=== PATIENT | female | born 1960 | race African-American/Black ===

== ENCOUNTER 2022-06-08 19:15 | Emergency (ER) | payer BC, SELFPAY ==
--- NOTE | ~2022-06-08 | CT_ITS ---
EXAMINATION: CT abdomen pelvis w con DATE: 06/08/2022 23:24 INDICATION: Gastrointestinal hemorrhage. TECHNIQUE: Computed tomography (CT) of the abdomen and pelvis was performed with 100 mL Omnipaque 350 intravenous contrast. Automated exposure control and iterative reconstruction technique were employe d. The dose-length product was 1362.41 mGy-cm. COMPARISON: None. FINDINGS: The visualized portions of the lung bases demonstrate mild atelectasis. No pleural effusion . The heart size is normal. No pericardial effusion. The liver, gallbladder, spleen, pancreas, and ad renal glands are normal. There is cortical thinning of the kidneys. There is diverticulosis of the co carola without evidence of diverticulitis. The appendix is normal. There are no pathologically enlarged lymph nodes. There are diverticula of the proximal duodenum. There is no free intraperitoneal fluid. There is scarring in anterior abdominal wall. There is mild lumbar spondylosis. IMPRESSION: 1. No specific etiology for gastrointestinal hemorrhage. Reviewed, dictated and finalized at location A.
[2022-06-08 19:55] VITALS: BP 165/90; PULSE 117; RESP 20; TEMP 36.5; O2SAT 99
[2022-06-08 20:13] LABS: Basophils Percent Auto 0.3 % (0.2-1.2); Eosinophils Absolute Auto 0.2 K/mm3 (0-0.3); Hematocrit 44.8 % (37.0-47.0); Hemoglobin 14.6 g/dL (12.0-15.0); Immature Granulocyte Absolute 0.06 K/mm3 (0.00-0.031); Immature Granulocyte Percent A 0.4 % (0-0.5); Lymphocytes Absolute Auto 3.25 K/mm3 (0.9-3.2); Lymphocytes Percent Auto 22.3 % (18.3-44.2); Mean Corpuscular HGB Conc 32.6 g/dl (32-36); Mean Corpuscular Hemoglobin 29.6 pg (26-34); Mean Corpuscular Volume 90.9 fl (80-100); Mean Platelet Volume 8.8 fl (7.4-10.4); Monocytes Absolute Auto 1.1 K/mm3 (0.1-0.6); Monocytes Percent Auto 7.5 % (2.6-8.5); Neutrophils Percent Auto 68.5 % (45.5-73.1); Platelet Count Result 326 k/mm3 (150-375); Red Blood Count 4.93 M/mm3 (4.2-5.4); Red Cell Distribution Width 14.9 % (11.5-14.5); White Blood Count 14.6 K/mm3 (4.5-10.0)
[2022-06-08 20:24] LABS: Alanine Aminotransferase 16 U/L (6-35); Albumin Level 4.2 g/dL (3.5-5.1); Alkaline Phosphatase 186 U/L (38-126); Anion Gap 12 mmol/L (8-16); Aspartate Amino Transferase 33 U/L (14-36); Bilirubin,Total 0.4 mg/dL (0.2-1.3); Blood Urea Nitrogen 26 mg/dL (7-17); Calcium 9.4 mg/dL (8.4-10.2); Carbon Dioxide 19 mmol/L (22-30); Chloride 107 mmol/L (98-107); Estimated CRCL calculation 63 ml/min; Estimated Glomerular Filt Rate > 60; Glucose 186 mg/dL (65-110); Potassium 3.8 mmol/L (3.4-5.0); Sodium 138 mmol/L (137-145)
[2022-06-08 20:25] LABS: Partial Thromboplastin Time 28.3 SECONDS (22.3-36.8); Prothrombin Time 13.1 Seconds (11.1-14.7)
--- NOTE | 2022-06-08 22:07 | ED.GENADULT ---
HPI - General Adult General Chief complaint: Unspecified Stated complaint: blood in stool Time Seen by Provider: 06/08/22 21:52 Related Data Allergies Allergy/AdvReac Type Severity Reaction Status Date / Time No Known Allergies Allergy Verified 06/08/22 19:57 [facility] Family History Family History (Updated 05/10/18 @ 11:23 by DOCTOR UNKNOWN) Other Diabetes mellitus Hypertension Social History Social History Smoking status: Never smoker Alcohol intake: never Course Vital Signs Vital signs: Vital Signs Temperature 97.7 F 06/08/22 19:55 Pulse Rate 117 H 06/08/22 19:55 Respiratory Rate 20 06/08/22 19:55 Blood Pressure 165/90 H 06/08/22 19:55 Pulse Oximetry 99 06/08/22 19:55 Oxygen Delivery Room Air 06/08/22 19:55 Temperature 97.7 F 06/08/22 19:55 Pulse Rate 117 H 06/08/22 19:55 Respiratory Rate 20 06/08/22 19:55 Blood Pressure 165/90 H 06/08/22 19:55 Pulse Oximetry 99 06/08/22 19:55 Oxygen Delivery Room Air 06/08/22 19:55 Medical Decision Making Vital Signs Vital Signs: Vital Signs Temperature 97.7 F 06/08/22 19:55 Pulse Rate 117 H 06/08/22 19:55 Respiratory Rate 20 06/08/22 19:55 Blood Pressure 165/90 H 06/08/22 19:55 Pulse Oximetry 99 06/08/22 19:55 Oxygen Delivery Room Air 06/08/22 19:55 Temperature 97.7 F 06/08/22 19:55 Pulse Rate 117 H 06/08/22 19:55 Respiratory Rate 20 06/08/22 19:55 Blood Pressure 165/90 H 06/08/22 19:55 Pulse Oximetry 99 06/08/22 19:55 Oxygen Delivery Room Air 06/08/22 19:55 Lab Data Result diagrams: 06/08/22 20:06 06/08/22 20:06 Labs: Lab Results 06/08/22 06/08/22 06/08/22 Range/Units 20:06 20:06 20:06 WBC 14.6 H (4.5-10.0) K/mm3 RBC 4.93 (4.2-5.4) M/mm3 Hgb 14.6 (12.0-15.0) g/dL Hct 44.8 (37.0-47.0) % MCV 90.9 (80-100) fl MCH 29.6 (26-34) pg MCHC 32.6 (32-36) g/dl RDW 14.9 H (11.5-14.5) % Plt Count 326 (150-375) k/mm3 MPV 8.8 (7.4-10.4) fl Immature Gran % (Auto) 0.4 (0-0.5) % Neut % (Auto) 68.5 (45.5-73.1) % Lymph % (Auto) 22.3 (18.3-44.2) % Campbell % (Auto) 7.5 (2.6-8.5) % Eos % (Auto) 1.0 (0-4.4) % Baso % (Auto) 0.3 (0.2-1.2) % Lymph # (Auto) 3.25 H (0.9-3.2) K/mm3 Campbell # (Auto) 1.1 H (0.1-0.6) K/mm3 Eos # (Auto) 0.2 (0-0.3) K/mm3 Baso # (Auto) 0.0 (0.0-0.1) K/mm3 Abs Immat Gran (auto) 0.06 H (0.00-0.031) K/mm3 Absolute Neuts (auto) 10.0 H (1.3-6.7) K/mm3 Absolute Nucleated RBC 0.0 (0.0-0.012) K/mm3 Nucleated RBC % 0.0 (0.0-0.2) % PT 13.1 (11.1-14.7) Seconds INR 1.0 APTT 28.3 (22.3-36.8) SECONDS Sodium 138 (137-145) mmol/L Potassium 3.8 (3.4-5.0) mmol/L Chloride 107 (98-107) mmol/L Carbon Dioxide 19 L (22-30) mmol/L Anion Gap 12 (8-16) mmol/L BUN 26 H (7-17) mg/dL Creatinine 0.90 (0.7-1.0) mg/dL Estim Creat Clear Calc 63 ml/min Estimated GFR > 60 (59 - ) Glucose 186 H (65-110) mg/dL Calcium 9.4 (8.4-10.2) mg/dL Total Bilirubin 0.4 (0.2-1.3) mg/dL AST 33 (14-36) U/L ALT 16 (6-35) U/L Alkaline Phosphatase 186 H (38-126) U/L Total Protein 8.0 (6.3-8.2) g/dL Albumin 4.2 (3.5-5.1) g/dL Blood Type Antibody Screen 06/08/22 Range/Units 20:06 WBC (4.5-10.0) K/mm3 RBC (4.2-5.4) M/mm3 Hgb (12.0-15.0) g/dL Hct (37.0-47.0) % MCV (80-100) fl MCH (26-34) pg MCHC (32-36) g/dl RDW (11.5-14.5) % Plt Count (150-375) k/mm3 MPV (7.4-10.4) fl Immature Gran % (Auto) (0-0.5) % Neut % (Auto) (45.5-73.1) % Lymph % (Auto) (18.3-44.2) % Campbell % (Auto) (2.6-8.5) % Eos % (Auto) (0-4.4) % Baso % (Auto) (0.2-1.2) % Lymph # (Auto) (0.9-3.2) K/mm3 Campbell # (Auto) (0.1-0.6) K/mm3 Eos # (Auto) (0-0.3) K/mm3 Baso # (Auto) (0.0-0.1) K/mm3 Abs Immat Gran (auto) (0.00-0.031)
--- NOTE | 2022-06-08 22:07 | ED.GIBLEED ---
HPI - GI Bleed General Chief complaint: Unspecified Stated complaint: blood in stool Time Seen by Provider: 06/08/22 21:52 History of Present Illness HPI Narrative: This is a 61-year-old female with past medical history of hypertension, hyperlipidemia, diabetes, presents the emergency department complaining of GI bleeding. She states she has had approximately 7 stools with bright red blood, blood clots mixed in stool. She states the bleeding appears to be slowing since it began. She denies pain, fevers or bleeding from any other source. She states she has not had a colonoscopy. She states over the last 4 weeks, she has been constipated. Related Data Allergies Allergy/AdvReac Type Severity Reaction Status Date / Time No Known Allergies Allergy Verified 06/08/22 19:57 Review of Systems Review of Systems: CONSTITUTIONAL: Denies fever, chills, or sweats. EYES: Denies visual changes, redness, or discharge. ENT: Denies rhinorrhea, congestion, sore throat, or otalgia. CARDIOVASCULAR: Denies chest pain, palpitations, or edema. RESPIRATORY: Denies cough or dyspnea. GASTROINTESTINAL: Bright red blood per rectum denies abdominal pain, nausea, vomiting, or diarrhea. GENITOURINARY: Denies dysuria or hematuria. SKIN: Denies rash or itching. MUSCULOSKELETAL: Denies back pain, joint pain, or myalgia. NEUROLOGIC: Denies headache, numbness, dizziness, or weakness. PSYCHIATRIC: Denies anxiety or depression. [facility] Family History Family History (Updated 05/10/18 @ 11:23 by DOCTOR UNKNOWN) Other Diabetes mellitus Hypertension Social History Social History Smoking status: Never smoker Alcohol intake: never Exam Narrative: GENERAL: Well-appearing, well-nourished, and in no acute distress. HEAD: Normocephalic, atraumatic. EYES: PERRLA and EOMI. ENT: Nares clear, no rhinorrhea or epistaxis. Mucous membranes moist. Oropharynx without tonsillar hypertrophy exudate or other lesions. NECK: Supple. No adenopathy or masses. No carotid bruits or JVD CHEST: Clear to auscultation. No respiratory distress. No wheezes rales or rhonchi HEART: Tachycardic with regular rhythm. No murmur heard. Normal peripheral pulses. ABDOMEN: Soft, nontender, nondistended, normal active bowel sounds. EXTREMITIES: Normal range of motion. No edema. SKIN: Warm, dry, no rash. NEURO: No focal deficits. Alert and oriented x3. PSYCH: Normal mood and affect. Course Course Emergency Course: 23:45 - Rectal exam with female nurse inbound telemarketer (STEVEN Wilson) showed bright red blood without hemorrhoid or fissure. Hgb 14. WBC 14. Chemistries remarkable for BUN of 26, consistent with GI bleed. Creatinine 0.9 with normal GFR. The patient states she would prefer to follow up with her primary care physician. 00:32 - CT demonstrates diverticulosis with question of subtle diverticulitis. Discussed findings with the patient, she still prefers to be discharged with primary care follow-up. Discussed return emergency precautions including signs/symptoms of acute abdomen and sepsis. The patient voiced understanding is comfortable to plan. All questions answered to her satisfaction. Vital Signs Vital signs: Vital Signs Temperature 97.7 F 06/08/22 19:55 Pulse Rate 117 H 06/08/22 19:55 Respiratory Rate 20 06/08/22 19:55 Blood Pressure 165/90 H 06/08/22 19:55 Pulse Oximetry 99 06/08/22 19:55 Oxygen Delivery Room Air 06/08/22 19:55 Temperature 97.7 F 06/08/22 19:55 Pulse Rate 109 H 06/09/22 01:00 Respiratory Rate 16 06/09/22 01:00 Blood Pressure 151/83 H 06/09/22 01:00 Pulse Oximetry 99 06/09/22 01:00 Oxygen Delivery Room Air 06/08/22 19:55 MDM - GI Bleed MDM Narrative Medical decision making narrative: Plan: Labs, PPI, imaging, reassess Differential Diagnosis Differential diagnosis: Likely hemorrhoids and other (Diverticulosis, diverticulitis, coagulopathy, metabolic abnormality, other) Lab Data Result diagrams:
[2022-06-08] MEDS: PANTOPRAZOLE SODIUM IV 40 MG VIAL 80 MG IV PUSH (22:26)
[2022-06-08] MEDS: SODIUM CHLORIDE 0.9% IV 1,000 ML 999 ML IV CONT (23:39)
[2022-06-09 01:00] VITALS: BP 151/83; PULSE 109; RESP 16; O2SAT 99
== END 2022-06-09 01:10 | disposition home or self-care (01) ==
PROVIDERS: Emergency Provider Preventive Medicine Aerospace Medicine
DX: K57.31 Diverticulosis of large intestine without perforation or abscess with bleeding (principal); R00.0 Tachycardia, unspecified; I10 Essential (primary) hypertension; E78.5 Hyperlipidemia, unspecified
CPT/HCPCS: 36415; 74177; 80053; 85025; 85610; 85730; 86850; 86900; 86901; 96361; 96374; 99284; C9113; J7030; Q9967

== ENCOUNTER 2022-07-13 00:14 | Day surgery (SDC) | payer BC, SELFPAY ==
[2022-06-25 08:50] VITALS: BMI 41.2
[2022-07-13 08:50] VITALS: BP 159/73; PULSE 88; RESP 18; TEMP 36.1; O2SAT 100; BMI 39.9
[2022-07-13] MEDS: LACTATED RINGERS 1,000 ML 150 ML IV CONT (09:30)
--- NOTE | 2022-07-13 09:31 | SUR.PREOP ---
PT'S BLOOD SUGAR 62. ASYMPTOMATIC. PT STATES SHE FEELS GOOD. DR. RILEY AWARE. NO FURTHER ORDERS.
[2022-07-13 09:32] LABS: Glucose Point of Care 62 mg/dl (65-105)
--- NOTE | 2022-07-13 09:34 | PM.HPGS ---
History of Present Illness History of Present Illness Consent: Risks, benefits, and alternatives have been discussed and questions answered. Patient agrees to proceed with procedure. Chief complaint: diverticulosis Narrative: Megha Chairez is a 61 year old female Presents for colonoscopy. Patient reports 1 month ago she presents the ER with bloody stools. She passed about 7 bowel movements with blood. Some of these were clots. In the ER her hemoglobin was stable. A CT scan revealed diverticulosis. No evidence of diverticulitis. Patient apparently was treated with probiotics and fiber. She was referred for colonoscopy. Patient has had no previous bleeding has had no bleeding subsequently. Family history is significant for colon cancer within the family. Review of Systems Review of Systems: Review of systems noncontributory. [facility] Family History Family History (Updated 05/10/18 @ 11:23 by DOCTOR UNKNOWN) Other Diabetes mellitus Hypertension Social History Social History Smoking status: Never smoker Alcohol intake: never Substance use: never Substance use type: does not use Living arrangements: with family Spiritual care concerns: No Meds Home Medications and Allergies Home Medications Medication Instructions Recorded Confirmed Type sod picosulf 10 mg-magnes 3.5 160 ml PO DAILY 2 doses #320 mL 06/14/22 07/13/22 Rx gram-citric 12 gram/160 mL oral solution (Clenpiq) amlodipine 10 mg tablet (Norvasc) 10 mg PO DAILY 06/25/22 07/13/22 History ergocalciferol (vitamin D2) 1,250 1,250 mcg PO WEEKLY 06/25/22 07/13/22 History mcg (50,000 unit) capsule glimepiride 2 mg tablet 2 mg PO PRN PRN elevated blood 06/25/22 07/13/22 History sugar insulin degludec 200 unit/mL (3 50 unit subcut DAILY 06/25/22 07/13/22 History mL) subcutaneous pen (Tresiba FlexTouch U-200 insulin) metformin 500 mg tablet,extended 500 mg PO PRN PRN elevated blood 06/25/22 07/13/22 History release 24 hr sugar rosuvastatin 5 mg tablet 5 mg PO DAILY 06/25/22 07/13/22 History semaglutide 1 mg/dose (4 mg/3 mL) 1 mg subcut WEEKLY 06/25/22 07/13/22 History subcutaneous pen injector (Ozempic) Allergies Allergy/AdvReac Type Severity Reaction Status Date / Time No Known Allergies Allergy Verified 07/13/22 08:59 Vital Signs Vital Signs - 24 hr 07/13/22 08:50 Temperature 97.0 F L Pulse Rate 88 Respiratory Rate 18 Blood Pressure 159/73 H Pulse Oximetry 100 Oxygen Delivery Room Air Exam Narrative: Physical exam reveals patient be alert. Vital signs stable. HEENT exam is unremarkable. Patient is anicteric. Lungs are clear to auscultation and percussion. Heart is without murmur or extra sounds. Abdomen bowel sounds are present soft nontender with no organomegaly. She is somewhat obese. Digital external rectal exam is normal. Assessment and Plan Assessment and plan (1) Encounter for screening colonoscopy: Code(s): Z12.11 - Encounter for screening for malignant neoplasm of colon Status: Acute Assessment and Plan: Patient presents for neoplasia screening. She has not had previous colonoscopy. Further recommendations will given. (2) Diverticulosis large intestine w/o perforation or abscess w/bleeding: Code(s): K57.31 - Diverticulosis of large intestine without perforation or abscess with bleeding Status: Acute Assessment and Plan: Patient with recent lower GI bleeding episode in the ER CT scan suggested diverticulosis is etiology. High-fiber diet advised. Colonoscopy to evaluate bleeding will be performed. (3) Blood in stool: Code(s): K92.1 - Melena Status: Acute (4) Obese: Code(s): E66.9 - Obesity, unspecified Status: Acute
--- NOTE | 2022-07-13 09:39 | P.PNAN_ITS ---
Anes - Initial Pre Proc Eval Procedure: Operation Date: 07/13/22 10:15 Proposed Procedures p Colonoscopy - Alvaro Stewart MD Date/Time: 07/13/22 09:39 Surgeon: Alvaro Stewart MD Pre Op Diagnosis: diverticulosis Patient Data Age: 61 Gender: F Height: 1.55 m Weight: 96 kg Last Vital Signs Temp 97.0 F L 07/13/22 08:50 Pulse 88 07/13/22 08:50 Resp 18 07/13/22 08:50 BP 159/73 H 07/13/22 08:50 Pulse Ox 100 07/13/22 08:50 O2 Del Method Room Air 07/13/22 08:50 Allergies Allergy/AdvReac Type Severity Reaction Status Date / Time No Known Allergies Allergy Verified 07/13/22 08:59 Home Medications Medication Instructions Recorded Confirmed Type sod picosulf 10 mg-magnes 3.5 160 ml PO DAILY 2 doses #320 mL 06/14/22 07/13/22 Rx gram-citric 12 gram/160 mL oral solution (Clenpiq) amlodipine 10 mg tablet (Norvasc) 10 mg PO DAILY 06/25/22 07/13/22 History ergocalciferol (vitamin D2) 1,250 1,250 mcg PO WEEKLY 06/25/22 07/13/22 History mcg (50,000 unit) capsule glimepiride 2 mg tablet 2 mg PO PRN PRN elevated blood 06/25/22 07/13/22 History sugar insulin degludec 200 unit/mL (3 50 unit subcut DAILY 06/25/22 07/13/22 History mL) subcutaneous pen (Tresiba FlexTouch U-200 insulin) metformin 500 mg tablet,extended 500 mg PO PRN PRN elevated blood 06/25/22 07/13/22 History release 24 hr sugar rosuvastatin 5 mg tablet 5 mg PO DAILY 06/25/22 07/13/22 History semaglutide 1 mg/dose (4 mg/3 mL) 1 mg subcut WEEKLY 06/25/22 07/13/22 History subcutaneous pen injector (Ozempic) Laboratory Tests 07/13/22 09:06 POC Capillary Glucose 62 mg/dl L mg/dl (65-105) Patient hx anesthesia problems: none Family hx anesthesia problems: none Results Review: All pre-operative results and documents have been reviewed as part of the pre- operative evaluation. [facility] Family History Family History (Updated 05/10/18 @ 11:23 by DOCTOR UNKNOWN) Other Diabetes mellitus Hypertension Social History Social History Smoking status: Never smoker Alcohol intake: never Substance use: never Substance use type: does not use Living arrangements: with family Spiritual care concerns: No Anes - Eval Final PreProcedure Day of Procedure 07/13/22 09:39 Patient weight: morbidly obese Heart: regular rate and rhythm Lungs: clear to auscultation Airway: Mallampati scale class III Neurological: alert and oriented Last oral intake: >/= 8 hours ASA classification: III Emergent: no Anesthetic plan: proceed Anesthesia type and monitoring: general GIVS and standard monitoring Results Review: All pre-operative results and documents have been reviewed as part of the pre- operative evaluation. Informed Consent: The patient's anesthetic plan and its attendant risks and benefits were discussed with the patient/family/POA. Questions were solicited and answers provided to the satisfaction of the patient/family/POA.
[2022-07-13] MEDS: DEXTROSE 50% 25 GM/50 ML SYRINGE IV PUSH (09:49)
--- NOTE | 2022-07-13 10:01 | SUR.PREOP ---
0945- AFTER DR. RILEY SPOKE WITH THE PATIENT, ORDERS RECEIVED FOR 12.5G 50% DEXTROSE IVP. 0950- 12.5G 50% DEXTROSE GIVEN. 1000- BS RECHECKED. 92
[2022-07-13 10:02] LABS: Glucose Point of Care 92 mg/dl (65-105)
[2022-07-13 10:48] VITALS: BP 135/69; PULSE 83; RESP 24; O2SAT 100
[2022-07-13 10:58] VITALS: BP 139/71; PULSE 87; RESP 22; O2SAT 100
[2022-07-13 10:58] LABS: Glucose Point of Care 96 mg/dl (65-105)
[2022-07-13 11:08] VITALS: BP 155/62; PULSE 81; RESP 19; O2SAT 100
== END 2022-07-13 12:10 | disposition home or self-care (01) ==
PROVIDERS: Visit Provider Internal Medicine Gastroenterology
PROC: 0DJD8ZZ Inspection of Lower Intestinal Tract, Via Natural or Artificial Opening Endoscopic (ICD-10-PCS; CPT 45378; principal; 2022-07-13 10:15)
DX: K92.1 Melena (principal); K64.8 Other hemorrhoids; K57.30 Diverticulosis of large intestine without perforation or abscess without bleeding; Z79.4 Long term (current) use of insulin; Z79.84 Long term (current) use of oral hypoglycemic drugs; E66.01 Morbid (severe) obesity due to excess calories; Z68.41 Body mass index [BMI] 40.0-44.9, adult; E11.9 Type 2 diabetes mellitus without complications; I10 Essential (primary) hypertension
CPT/HCPCS: 45378; 82948; J2001; J2704; J7120

== ENCOUNTER 2022-12-02 14:40 | Outpatient (CLI) | payer BC, SELFPAY ==
--- NOTE | ~2022-12-02 | US_ITS ---
US art doppler w press LE BI INDICATION: Discoloration of the lower leg. TECHNIQUE: Segmental pressures and plethysmographic and Doppler waveforms of the brachial and lower e xtremity arteries were obtained. COMPARISON: None. FINDINGS: Right and left brachial artery pressures of 137 mm Hg and 169 mm Hg, respectively, are discordant (no rmal difference <= 30 mmHg). The right ankle-brachial index (LATISHA) is 0.96 (normal >= 0.9-1.0). The right great toe-brachial index (TBI) is 0.38 (normal >= 0.60). The left LATISHA is 0.89. The left TBI is 0.47. IMPRESSION: 1. Discordant brachial pressures, suspicious for stenosis of the right subclavian or brachial artery. 2: Diminished right toe brachial index consistent with peripheral arterial disease. Normal right ankl e-brachial index. 3: Diminished left ankle and toe brachial indices consistent with mild peripheral arterial disease. Reviewed, dictated and finalized at location L. [employer] IMPRESSION: 1. Discordant brachial pressures, suspicious for stenosis of the right subclavi an or brachial artery. 2: Diminished right toe brachial index consistent with peripheral arterial dise ase. Normal right ankle-brachial index. 3: Diminished left ankle and toe brachial indices consistent with mild peripher al arterial disease.
== END 2022-12-02 14:41 | disposition home or self-care (01) ==
PROVIDERS: PCP Nurse Practitioner Family; Visit Provider Nurse Practitioner Family
DX: L81.9 Disorder of pigmentation, unspecified (principal); I10 Essential (primary) hypertension; E11.9 Type 2 diabetes mellitus without complications; Z79.4 Long term (current) use of insulin; R93.6 Abnormal findings on diagnostic imaging of limbs
CPT/HCPCS: 93923

== ENCOUNTER 2023-05-31 17:17 | Emergency (ER) | payer BC, SELFPAY ==
--- NOTE | ~2023-05-31 | XR_ITS ---
EXAMINATION: XR chest 2V Exam Date/Time: 05/31/2023 17:35 CDT HISTORY: cough/congestion X 5 DAYS Comparison: None. RESULT: Lines, tubes, and devices: None. Lungs and pleura: Minimal bibasilar scar/atelectasis. Cardiomediastinal silhouette: Stable. Other: No acute osseous or upper abdominal finding. IMPRESSION: No acute cardiopulmonary process. Reviewed, dictated and finalized at location K.
[2023-05-31 17:24] VITALS: BP 146/83; PULSE 105; RESP 18; TEMP 37.1; O2SAT 100
--- NOTE | 2023-05-31 17:53 | ED.URI ---
HPI - URI/Sore Throat General Chief Complaint: Upper Respiratory Infection Stated Complaint: cough Time Seen by Provider: 05/31/23 17:45 Source: patient Mode of arrival: ambulatory Limitations: no limitations History of Present Illness HPI Narrative: Megha is a 62-year-old female patient presenting to the ER today with complaints of cough, headache, runny nose, congestion, and fatigue x 5 days. She denies any sore throat,chest pain or shortness of breath. She works as a pre k special education teacher and states that children have been coughing and sneezing around her. MD elicited complaint: cough, rhinorrhea, nasal congestion and other ( Fatigue, headache) Related Data Home Medications Medication Instructions Recorded Confirmed amlodipine 10 mg tablet (Norvasc) 10 mg PO DAILY 06/25/22 07/13/22 ergocalciferol (vitamin D2) 1,250 1,250 mcg PO WEEKLY 06/25/22 07/13/22 mcg (50,000 unit) capsule glimepiride 2 mg tablet 2 mg PO PRN PRN elevated blood 06/25/22 07/13/22 sugar insulin degludec 200 unit/mL (3 50 unit subcut DAILY 06/25/22 07/13/22 mL) subcutaneous pen (Tresiba FlexTouch U-200 insulin) metformin 500 mg tablet,extended 500 mg PO PRN PRN elevated blood 06/25/22 07/13/22 release 24 hr sugar rosuvastatin 5 mg tablet 5 mg PO DAILY 06/25/22 07/13/22 semaglutide 1 mg/dose (4 mg/3 mL) 1 mg subcut WEEKLY 06/25/22 07/13/22 subcutaneous pen injector (Ozempic) Allergies Allergy/AdvReac Type Severity Reaction Status Date / Time No Known Allergies Allergy Verified 07/13/22 08:59 Review of Systems Review of Systems: Pertinent positives per HPI. Patient denies any fever, chills, rash, visual changes, dizziness, shortness of breath, chest pain, palpitations, nausea, vomiting, diarrhea, constipation, abdominal pain, or any urinary issues. [facility] Family History Family History Other Diabetes mellitus Hypertension Social History Social History Smoking status: Never smoker Alcohol intake: never Substance use: never Substance use type: does not use Living arrangements: with family Spiritual care concerns: No Comments At the time of my signature, I reviewed and agree with the nursing past medical, surgical, social, and family history. There is no relevant family history pertinent to the patient complaint. Exam Narrative: General: Well-developed, well nourished, in no apparent distress Head: Normocephalic, atraumatic Eyes: Pupils equally round and reactive to light bilaterally, EOM intact, sclera and conjunctive clear, no discharge, lids normal Ears: TMs intact and congested, ear canals clear, no drainage, grossly hearing normal. Nose: Nares patent, clear nasal discharge, no inflammation, no sinus tenderness. Mouth: Oral pharynx without lesions or masses, good dentition, MMM. PND Neck: Supple, trachea midline, no enlargement of anterior or posterior cervical nodes, no thyroid masses or goiter palpable. Cardio: Regular rate and rhythm, s1 and s2 normal, no murmur appreciated. Resp: Clear to auscultation bilaterally, no rhonchi, rales, wheezing or rubs Course Course Emergency Course: Portions of this record may have been created with voice recognition software. Vital Signs Vital signs: Vital Signs Temperature 37.1 C 05/31/23 17:24 Pulse Rate 105 H 05/31/23 17:24 Respiratory Rate 18 05/31/23 17:24 Blood Pressure 146/83 H 05/31/23 17:24 Pulse Oximetry 100 05/31/23 17:24 Oxygen Delivery Room Air 05/31/23 17:24 Temperature 37.1 C 05/31/23 17:24 Pulse Rate 105 H 05/31/23 17:24 Respiratory Rate 18 05/31/23 17:24 Blood Pressure 146/83 H 05/31/23 17:24 Pulse Oximetry 100 05/31/23 17:24 Oxygen Delivery Room Air 05/31/23 17:49 Vital signs reviewed MDM - URI/Sore Throat MDM Narrative Medical decision making narrative: At the t
[2023-05-31 18:09] LABS: Influenza A QL RT-PCR Negative (Negative); Influenza B QL RT-PCR Negative (Negative); SARS-CoV-2 RNA PCR Positive (Negative)
== END 2023-05-31 18:23 | disposition home or self-care (01) ==
PROVIDERS: Student in an Organized Health Care Education/Training Program; Emergency Provider Nurse Practitioner Family; PCP Nurse Practitioner Family
DX: U07.1 COVID-19 (principal); Z79.4 Long term (current) use of insulin; Z79.84 Long term (current) use of oral hypoglycemic drugs; Z79.85 Long-term (current) use of injectable non-insulin antidiabetic drugs
CPT/HCPCS: 71046; 87636; 99283

== ENCOUNTER 2024-07-29 08:06 | Emergency (ER) | payer BC, SELFPAY ==
[2024-07-29] VITALS (12 sets, daily range): BP systolic 147–166; BP diastolic 82–94; PULSE 84–97; RESP 15–19; TEMP 36.6; O2SAT 97–100
--- NOTE | ~2024-07-29 | CT_ITS ---
EXAMINATION: CT abdomen pelvis w con DATE: 07/29/2024 10:03 INDICATION: Left lower quadrant abdominal pain. TECHNIQUE: Computed tomography (CT) of the abdomen and pelvis was performed with 100 mL Omnipaque 350 intravenous contrast. Automated exposure control and iterative reconstruction technique were employe d. The dose-length product was 1209.26 mGy-cm. COMPARISON: CT abdomen and pelvis 06/08/2022 FINDINGS: The visualized portions of the lung bases demonstrate mild atelectasis. No pleural effusion . The heart size is normal. No pericardial effusion. The liver, gallbladder, spleen, pancreas, and ad renal glands are normal. There is cortical thinning of the kidneys. There is diverticulosis of the co carola without evidence of diverticulitis. The appendix is normal. There are no dilated loops of bowel. There are no pathologically enlarged lymph nodes. There is no free intraperitoneal fluid. There is cooney bcutaneous scarring in anterior abdominal wall. There is mild lumbar spondylosis. IMPRESSION: 1. No etiology for the patient's symptoms. Reviewed, dictated and finalized at location A.
[2024-07-29 08:49] LABS: Basophils Percent Auto 0.5 % (0.2-1.2); Eosinophils Absolute Auto 0.2 K/mm3 (0-0.3); Eosinophils Percent Auto 2.3 % (0-4.4); Hematocrit 43.4 % (37.0-47.0); Hemoglobin 14.5 g/dL (12.0-15.0); Immature Granulocyte Absolute 0.04 K/mm3 (0.00-0.031); Immature Granulocyte Percent A 0.5 % (0-0.5); Lymphocytes Absolute Auto 1.97 K/mm3 (0.9-3.2); Lymphocytes Percent Auto 22.4 % (18.3-44.2); Mean Corpuscular HGB Conc 33.4 g/dl (32-36); Mean Corpuscular Hemoglobin 31.3 pg (26-34); Mean Corpuscular Volume 93.7 fl (80-100); Mean Platelet Volume 9.1 fl (7.4-10.4); Monocytes Absolute Auto 0.9 K/mm3 (0.1-0.6); Monocytes Percent Auto 10.4 % (2.6-8.5); Neutrophils Absolute Auto 5.6 K/mm3 (1.3-6.7); Neutrophils Percent Auto 63.9 % (45.5-73.1); Platelet Count Result 360 k/mm3 (150-375); Red Blood Count 4.63 M/mm3 (4.2-5.4); Red Cell Distribution Width 13.7 % (11.5-14.5); White Blood Count 8.8 K/mm3 (4.5-10.0)
[2024-07-29 08:56] LABS: Add Urine Microscopic? YES; Appearance Urine Clear (Clear); Bacteria Urine None Seen /hpf; Bilirubin Urine Negative (Negative); Blood Urine 2+ (Negative); Color Urine Yellow (Yellow); Glucose Urine UA Negative (Negative); Ketones Urine Negative (Negative); Leukocyte Esterase Ur 2+ LEU/UL (Negative); Nitrate Urine Negative (Negative); Non Pathogenic Casts 0-2; Protein Urine Negative (Negative); Specific Grav Ur 1.015 (1.001-1.035); Squamous Epithelial Cell Urine Occasional /hpf (Few); Urobilinogen Urine 0.2 mg/dL (<2.0); pH Urine 6.5 (5.0-9.0)
[2024-07-29 09:05] LABS: Alanine Aminotransferase 19 U/L (6-35); Alkaline Phosphatase 165 U/L (38-126); Anion Gap 9 mmol/L (4-12); Aspartate Amino Transferase 27 U/L (14-36); Bilirubin,Total 0.3 mg/dL (0.2-1.3); Blood Urea Nitrogen 22 mg/dL (7-17); Calcium 9.7 mg/dL (8.4-10.2); Carbon Dioxide 27 mmol/L (22-30); Chloride 103 mmol/L (98-107); Estimated CRCL calculation 68 ml/min; Estimated Glomerular Filt Rate > 60; Glucose 170 mg/dL (65-110); Lipase 166 U/L (23-300); Potassium 4.5 mmol/L (3.4-5.0); Sodium 139 mmol/L (137-145)
--- NOTE | 2024-07-29 11:13 | ED.ABDPAIN ---
HPI - Abdominal Pain General Chief Complaint: Abdominal Pain Stated Complaint: abd pain, HX diverticulitis Time Seen by Provider: 07/29/24 08:17 History of Present Illness HPI narrative: Patient is a 63-year-old female with history of diverticulosis with diverticular bleed in the past who presents ER with rectal bleeding. Began last night. Has had passed clots the size of a quarter. No diarrhea. Has frequency to use the restroom. No fevers or chills or sweats. Reports she has been eating a lot of popcorn and peanuts recently that may be causing irritation or colon. No additional concerns. Related Data Home Medications Medication Instructions Recorded Confirmed amlodipine 10 mg tablet (Norvasc) 10 mg PO DAILY 06/25/22 07/13/22 ergocalciferol (vitamin D2) 1,250 1,250 mcg PO WEEKLY 06/25/22 07/13/22 mcg (50,000 unit) capsule glimepiride 2 mg tablet 2 mg PO PRN PRN elevated blood 06/25/22 07/13/22 sugar insulin degludec 200 unit/mL (3 50 unit subcut DAILY 06/25/22 07/13/22 mL) subcutaneous pen (Tresiba FlexTouch U-200 insulin) metformin 500 mg tablet,extended 500 mg PO PRN PRN elevated blood 06/25/22 07/13/22 release 24 hr sugar rosuvastatin 5 mg tablet 5 mg PO DAILY 06/25/22 07/13/22 semaglutide 1 mg/dose (4 mg/3 mL) 1 mg subcut WEEKLY 06/25/22 07/13/22 subcutaneous pen injector (Ozempic) Allergies Allergy/AdvReac Type Severity Reaction Status Date / Time No Known Allergies Allergy Verified 07/29/24 08:07 Review of Systems Review of Systems: All systems reviewed & are unremarkable except as noted in HPI and below Constitutional: Constitutional: Reports no additional constitutional complaints Cardiovascular: Cardiovascular: Reports no additional cardiovascular complaints Respiratory: Respiratory: Reports no additional respiratory complaints Gastrointestinal: Gastrointestinal: Denies abdominal pain, Denies diarrhea, Denies nausea and Denies vomiting Comments: + Rectal bleeding PMFSH Past Medical History Medical History (Updated 07/29/24 @ 12:09 by Mark Mar MD) Diabetes Diverticulosis Surgical History Surgical History (Updated 07/29/24 @ 12:08 by Mark Mar MD) History of colonoscopy Family History Family History Other Diabetes mellitus Hypertension Social History Social History Smoking status: Never smoker Alcohol intake: never Substance use: never Substance use type: does not use Living arrangements: with family Spiritual care concerns: No Exam Narrative: GENERAL: Well-appearing, Morbidly obese, and in no acute distress. HEAD: Normocephalic, atraumatic. ENT: Mucous membranes moist. CHEST: Clear to auscultation. No respiratory distress. HEART: Regular rate and rhythm. Normal peripheral pulses. ABDOMEN: Soft, nontender, nondistended. Rectal declined by patient. EXTREMITIES: Normal range of motion. No edema. SKIN: Warm, dry, no rash. NEURO: Alert and oriented x3. PSYCH: Normal mood and affect. Course Course Emergency Course: Patient resting comfortably. Informed of results. Declines rectal exam. Likely diverticular bleed. Will be cautious and put her on augmentin. Recommend follow-up with GI for colonoscopy. No blood thinners. No hemodynamic instability or anemia. Vital Signs Vital signs: Vital Signs Temperature 98 F 07/29/24 08:12 Pulse Rate 97 07/29/24 08:12 Respiratory Rate 18 07/29/24 08:12 Blood Pressure 147/90 H 07/29/24 08:12 Pulse Oximetry 98 07/29/24 08:12 Oxygen Delivery Room Air 07/29/24 08:12 Temperature 98 F 07/29/24 08:12 Pulse Rate 90 07/29/24 11:15 Respiratory Rate 16 07/29/24 11:15 Blood Pressure 166/94 H 07/29/24 09:32 Pulse Oximetry 99 07/29/24 11:15 Oxygen Delivery Room Air 07/29/24 08:12 MDM - Abdominal Pain Lab Data 07/29/24 08:44 07/29/24 08:44 Labs: Lab Results 07/29/24 Range/Units 08:44 WBC 8.8 (4.5-10.0) K/mm3 RBC 4.63 (4.2-5.4) M/mm3 Hgb 14.5 (12.0-15.0) g/dL Hct 43.4 (37.0-47.0) % MCV 93.7 (80-100) fl MCH 31.3 (26-34) pg MCHC 33.4 (32-36) g/dl RDW 13.7 (11.5-14.5) % Plt Count 360 (150-375) k/mm3 MPV 9.1 (7.4-10.4) fl Immature Gran % (Auto) 0.5 (0-0.5) % Neut % (Auto) 63.9 (45.5-73.1) % Lymph % (Auto) 22.4 (18.3-44.2) % [place] % (Auto) 10.4 H (2.6-8.5) % Eos % (Auto) 2.3 (0-4.4) % Baso % (Auto) 0.5 (0.2-1.2) % Lymph # (Auto) 1.97 (0.9-3.2) K/mm3 [place] # (Auto) 0.9 H (0.1-0.6) K/mm3 Eos # (Auto) 0.2 (0-0.3) K/mm3 Baso # (Auto) 0.0 (0.0-0.1) K/mm3 Abs Immat Gran (auto) 0.04 H (0.00-0.031) K/mm3 Absolute Neuts (auto) 5.6 (1.3-6.7) K/mm3 Absolute Nucleated RBC 0.000 (0.0-0.012) K/mm3 Nucleated RBC % 0.0 (0.0-0.2) % Sodium 139 (137-145) mmol/L Potassium 4.5 (3.4-5.0) mmol/L Chloride 103 (98-107) mmol/L Carbon Dioxide 27 (22-30) mmol/L Anion Gap 9 (4-12) mmol/L BUN 22 H (7-17) mg/dL Creatinine 0.80 (0.7-1.0) mg/dL Estim Creat Clear Calc 68 ml/min Estimated GFR > 60 (59 - ) Glucose 170 H (65-110) mg/dL Calcium 9.7 (8.4-10.2) mg/dL Total Bilirubin 0.3 (0.2-1.3) mg/dL AST 27 (14-36) U/L ALT 19 (6-35) U/L Alkaline Phosphatase 165 H (38-126) U/L Total Protein 7.0 (6.3-8.2) g/dL Albumin 4.0 (3.5-5.1) g/dL Lipase 166 (23-300) U/L Urine Color Yellow (Yellow) Urine Appearance Clear (Clear) Urine pH 6.5 (5.0-9.0) Ur Specific [place] 1.015 (1.001-1.035) Urine Protein Negative (Negative) mg/dL Urine Glucose (UA) Negative (Negative) mg/dL Urine Ketones Negative (Negative) mg/dL Ur Blood (Man) 2+ H (Negative) Urine Nitrate Negative (Negative) Urine Bilirubin Negative (Negative) Urine Urobilinogen 0.2 (<2.0) mg/dL Leukocyte Esterase Rfl 2+ H (Negative) MINI/UL Urine RBC 3-5 H (0-2) /hpf Urine WBC 6-10 H (0-3) /hpf Ur Squamous Epith Cells Occasional (Few) /hpf Urine Bacteria None seen /hpf Urine Casts 0-2 Imaging Data Radiologist's impression: ITS Impressions Abdomen/Pelvis CT 07/29/24 10:12 IMPRESSION: 1. No etiology for the patient's symptoms. Discharge Plan Discharge Clinical Impression: Rectal bleeding Patient Disposition: Home, Self-Care Condition: Stable Instructions: Diverticulosis (ED), Diverticulitis Diet (ED) Additional Instructions: Return to the emergency department if you develop severe abdominal pain, severe nausea and vomiting to the point where you are unable to keep down fluids, if you develop chest pain or difficulty breathing, blood in your stool, dizziness or fainting, or if you develop any other new or concerning symptoms as these could be signs of more serious medical illness. Try to stay well hydrated. Prescriptions: New amoxicillin-pot clavulanate 875-125 mg tablet 1 tablet PO Q12H Qty: 14 0RF No Action amlodipine [Norvasc] 10 mg tablet 10 mg PO DAILY ergocalciferol (vitamin D2) 1,250 mcg (50,000 unit) capsule 1,250 mcg PO WEEKLY rosuvastatin 5 mg tablet 5 mg PO DAILY Ozempic 1 mg/dose (4 mg/3 mL) pen injector 1 mg SUBCUT WEEKLY glimepiride 2 mg tablet 2 mg PO PRN PRN (Reason: elevated blood sugar) metformin 500 mg tablet extended release 24 hr 500 mg PO PRN PRN (Reason: elevated blood sugar) insulin degludec [Tresiba FlexTouch U-200] 200 unit/mL (3 mL) insulin pen 50 unit SUBCUT DAILY prednisone 20 mg tablet 40 mg PO DAILY 5 Days Qty: 10 0RF Follow-up/Referrals: TULIO,SOLA STORM [Primary Care Provider] - Dru Ta MD [Physician] - 1 Week
== END 2024-07-29 11:37 | disposition home or self-care (01) ==
PROVIDERS: Emergency Provider Emergency Medicine; PCP Nurse Practitioner Family
DX: K62.5 Hemorrhage of anus and rectum (principal); E11.9 Type 2 diabetes mellitus without complications; Z79.4 Long term (current) use of insulin
CPT/HCPCS: 36415; 74177; 80053; 81001; 83690; 85025; 87077; 87086; 87186; 99284; Q9967

== ENCOUNTER 2025-02-12 01:12 | Day surgery (SDC) | payer BC, SELFPAY ==
[2025-01-31 14:20] VITALS: BMI 41.8
--- OUTSIDE RECORDS SUMMARY | 2025-02-12 01:14 | XMS_ITS | CONTINUITY OF CARE DOCUMENT ---
Author Name william thomas Address Unknown Organization [facility] Address [id number] [place] [address] [address] [place] [address] Phone [phone] Care Team Providers Care Catering Service Manager Name Role Phone william thomas Unavailable Unavailable
--- OUTSIDE RECORDS SUMMARY | 2025-02-12 01:14 | XMS_ITS | Clinical Summary ---
Author Organization [facility] Address [address] [facility] [place] [address] Phone Care Team Providers Care Day Care Attendant Name Role Phone [address] Primary Care Provider Social History Tobacco Use Types Packs/Day Years Used Date Smoking Tobacco: Never Assessed Comments Unknown Sex and Gender Information Value Date Recorded Sex Assigned at Not on file Legal Sex Female 3:49 PM EST Gender Identity Not on file Sexual Orientation Not on file Last Filed Vital Signs Vital Sign Reading Time Taken Comments Blood Pressure 140/80 12/31/2021 1:38 PM CDT Pulse 102 12/31/2021 1:38 PM CDT Temperature 36.1 C (97 F) 12/31/2021 1:38 PM CDT Respiratory Rate 18 12/31/2021 1:38 PM CDT Oxygen Saturation 99% 12/31/2021 1:38 PM CDT Inhaled Oxygen Concentration - - Weight 101 kg (223 lb 6.4 oz) 12/31/2021 1:38 PM CDT Height 154.9 cm (5' 1 ) 12/31/2021 1:38 PM CDT Body Mass Index 42.21 12/31/2021 1:38 PM CDT Plan of Treatment Health Maintenance Due Date Last Done Comments Breast Cancer Screening 1961 Pneumococcal Vaccine: 50+ Ye ars (1 of 2 - PCV) 1980 Colorectal Cancer Screening: Annual FOBT 2010 Colorectal Cancer Screening: Colonoscopy 2010 Colorectal Cancer Screening: Sigmoidoscopy 2010 Influenza Vaccine (Season Ended) 2025 Hepatitis B Vaccine Aged Out No longe r eligible based on patient's age to complete this topic Insurance [facility] [place] [facility] [place] [facility] [place] Care Teams Day Care Attendant Relationship Specialty Start Date End Date Nolan St PCP - General Internal Medicine 12/31/21
--- OUTSIDE RECORDS SUMMARY | 2025-02-12 01:14 | XMS_ITS | Clinical Summary ---
Author Organization [facility] Address [address] [place] [address] Care Team Providers Care Development And Planning Engineer Name Role Phone Junie Young BLANQUITA Primary Care Provider [phone] Allergies No known active allergies Medications glimepiride (AMARYL) 2 MG tablet Take 2 tablets (4 mg total) by mouth 2 (two) times daily before meals. 06/12/20 22 Active diclofenac EC (VOLTAREN) 75 MG tablet Take 1 tablet (75 mg total) by mouth 2 (two) times daily. 11/05/19 23 Active furosemide (LASIX) 20 MG tabletIndications :Primary hypertension take 1 tablet by mouth every day in the morning 90 tablet 1 12/05/19 24 Active EUFLEXXA 20 MG/2ML injection Inject 2 mL by intra-articu lar route as directed for 21 days, for bilateral knee osteoarthrit is. Active triamcinolone (KENALOG) 0.1 % ointmentIndicatio ns:Rash Apply topically 2 (two) times daily. 30 g 05/18/20 24 Active rosuvastatin (CRESTOR) 5 MG tabletIndications :Mixed hyperlipidemia Take 1 tablet (5 mg total) by mouth daily. 90 tablet 3 05/23/20 24 Active mupirocin (BACTROBAN) 2 % ointmentIndicatio ns:Skin sore Apply topically 2 (two) times daily. 30 g 06/26/20 24 Active vitamin D2, ergocalciferol, (DRISDOL) 1.25 mg capsuleIndication s:Vitamin D deficiency Take 1 capsule (1.25 mg total) by mouth every 7 days. 12 capsule 3 08/28/20 24 Active BD ULTRA-FINE PEN NEEDLES 29G X 12.7MM MiscIndications:T ype 2 diabetes mellitus without complication, without long-term current use of insulin ([facility]),BMI 40.0-44.9, adult ([facility]) 1 Needle by Does not apply route once a week. 4 each 1 09/04/20 24 Active OZEMPIC 2 mg/dose injection (PEN)Indications: Diabetes Mellitus Inject 2 mg into the skin once a week. Indications: Diabetes 9 mL 3 09/04/20 24 Active metFORMIN ER (GLUCOPHAGE-XR) 500 MG 24 hr tabletIndications :Type 2 diabetes mellitus without complication, without long-term current use of insulin ([facility]),BMI 40.0-44.9, adult ([facility]) TAKE 1 TABLET BY MOUTH TWICE A DAY 180 tablet 1 09/14/20 24 Active losartan (COZAAR) 100 MG tabletIndications :Primary hypertension Take 1 tablet (100 mg total) by mouth every morning. 90 tablet 3 10/22/19 25 Active albuterol sulfate HFA 108 (90 Base) MCG/ACT inhalerIndication s:Asthma ([facility]) Inhale 2 puffs into the lungs every 6 (six) hours as needed for Wheezing. 18 g 1 11/13/19 25 Active fluticasone propionate (FLONASE) 50 MCG/ACT nasal sprayIndications: Sinus complaint SPRAY 2 SPRAYS INTO EACH NOSTRIL EVERY DAY 48 mL 1 11/19/19 25 Active amLODIPine (NORVASC) 10 MG tabletIndications :Primary hypertension TAKE 1 TABLET BY MOUTH EVERY DAY 90 tablet 1 12/18/19 25 Active Insulin Pen Needle (B-D ULTRAFINE III SHORT PEN) 31G X 8 MM MiscIndications:T ype 2 diabetes mellitus without complications ([facility]) USE TO DIRECTED TO INJECT INSULIN DAILY 100 each 1 12/28/19 25 Active TRESIBA FLEXTOUCH 200 UNIT/ML injection (PEN)Indications: Type 2 diabetes mellitus without complication, without long-term current use of insulin ([facility]),BMI 40.0-44.9, adult ([facility]) INJECT 50 UNITS INTO THE SKIN NIGHTLY AT BEDTIME 3 mL 1 01/29/20 25 Active TRESIBA FLEXTOUCH 200 UNIT/ML injection (PEN)Indications: Type 2 diabetes mellitus without complication, without long-term current use of insulin ([facility]),BMI 40.0-44.9, adult ([facility]) Inject 50 Units into the skin nightly at bedtime. 24 mL 1 09/04/20 24 025 Discontinued Active Problems Problem Noted Date Diagnosed Date Arthralgia of both knees 03/20/2024 Osteoarthritis of both knees 03/20/2024 Discoloration of skin of lower leg 2022 Primary hypertension 06/24/2022 Type 2 diabetes mellitus wit hout complication, without long-term current use of insulin ([facility]) 06/24/2022 Mixed hyperlipidemia 06/24/2022 BMI 40.0-44.9, adult 06/24/2022 Diverticulosis 06/24/2022 Vitamin D deficiency 06/24/2022 High serum creatinine 10/28/2021 Resolved Problems Problem Noted Date Diagnosed Date Resolved Date Blood in stool 06/24/2022 2022 Encounters Date Type Department Care Team Description 11/26/2024 Scan [facility] Scanned, Doc Med Group 11/19/2024 Formspring Message Enc [facility] Family & Internal Medicine [address] [phone] Junie Young, BLANQUITA Sinus Infection from Last 3 Months Immunizations Immunization Administration Dates Next Due Fluzone 6 Months+ Quad (0.5 mL Prefilled Syringe ) 10/17/2023 Influenza Adult (Generic) 08/02/2024,08/13/2022 Pneumococcal (Prevnar 20) 04/11/2023 Tdap (Adacel) 04/11/2023 Family History Medical History Relation Comments Diabetes Brother 1 Stroke Brother 2 Massive stroke o f the brain stem Diabetes Maternal Grandmother Cancer Mother Diabetes Mother Hypertension Mother Relation Status Comments Brother 1 Alive Brother 2 Maternal Grandmother Mother Social History Tobacco Use Types Packs/Day Years Used Date Smoking Tobacco: Never Passive Smoke Exposure: Never Smokeless Tobacco: Never Tobacco Cessation:Counseling Given: Not Answered Comments:None I don't use it. Alcohol Use Standard Drinks/Week Comments Never 0 (1 standard drink = 0.6 oz pur e alcohol) PHQ-2 Answer Date Recorded Patient Health Questionnaire-2 Score 0 10/22/2024 Comments No Sex and Gender Information Value Date Recorded Sex Assigned at Female 10/22/2024 8:07 AM INTERACTIVE PROJECT MANAGER Legal Sex Female 10:48 AM CDT Gender Identity Female 10/22/2024 8:07 AM INTERACTIVE PROJECT MANAGER Sexual Orientation Not on file Last Filed Vital Signs Vital Sign Reading Time Taken Comments Blood Pressure 116/64 10/22/2024 8:07 AM INTERACTIVE PROJECT MANAGER Pulse 88 10/22/2024 8:07 AM INTERACTIVE PROJECT MANAGER Temperature 36.6 C (97.9 F) 10/22/2024 8:07 AM INTERACTIVE PROJECT MANAGER Respiratory Rate 16 10/22/2024 8:07 AM INTERACTIVE PROJECT MANAGER Oxygen Saturation 98% 10/22/2024 8:07 AM INTERACTIVE PROJECT MANAGER Inhaled Oxygen Concentration - - Weight 101.1 kg (222 lb 12.8 oz) 10/22/2024 8:07 AM INTERACTIVE PROJECT MANAGER Height 154.9 cm (5' 1 ) 10/22/2024 8:07 AM INTERACTIVE PROJECT MANAGER Body Mass Index 42.1 10/22/2024 8:07 AM INTERACTIVE PROJECT MANAGER Plan of Treatment Upcoming Encounters Date Type Department Care Team (Late st Contact Info) Description 04/16/2025 8:40 AM CDT Laboratory Only [facility] Family & Internal Medicine [address] [phone] Junie Young, BLANQUITA [address] [place] [phone] 04/23/2025 8:00 AM CDT Office Visit [facility] Family & Internal Medicine [address] [phone] Junie Young FNP [address] [place] [phone] Health Maintenance Due Date Last Done Comments Cervical Cancer Screening Pap Smear (Age 30 to 64) Every 3 Years 1961 Kidney Health Evaluation 1961 Annual Physical 1964 Cervical Cancer Screening Pap with HPV Testing (Age 30 to 64) Every 5 Years 1991 Lipid Panel 11/21/2024 11/21/2023 Hemoglobin A1C 04/21/2025 10/22/2024, 04/03, 10/17/2023, Additional history exists Cervical Cancer Screening with HPV 04/24/2025 Postponed from 1991 (Going to Outside Clinic) COVID-19 Vaccine ( season) 2025 08/13/2022, 07/13/2021, 12/02/2020, Additional history exists Postponed from 06/03/2024 (Patient Refused) RSV Immunization or 60+ Years (1 - Risk 60-74 years 1-dose series) 10/22/2025 Postponed fro m 2021 (Patient Refused) Zoster Vaccines (1 of 2) 10/22/2025 Pos tponed from 2011 (Patient Refused) Mammogram Screening 05/31/2026 05/31/2024, 05/17/2023, 05/12/2021, Additional history exists Diabetes: Retinopathy Eye Exam 06/28/2026 06/28/2024, 06/16/2023, 06/02/2021 Colorectal Cancer Screening Colonoscopy (10 Years) 07/13/2032 07/13/2022 DTaP, Tdap and Td Vaccines (2 - Td or Tdap) 04/11/2033 04/11/2023 Pneumococcal Vaccine: 50+ Years Completed 04/11/2023 Hepatitis C Completed 11/21/2023 PHQ-2 (Physician [place]) Completed 10/22/2024 Meningococcal B Vaccine Aged Out No l onger eligible based on patient's age to complete this topic Meningococcal Vaccine Aged Out No carola eduardo eligible based on patient's age to complete this topic RSV Immunizations Under 20 Months Aged Out No longer eligible based on patient's age to complete this topic Procedures Procedure Name Priority Date/Time Associated Diagnosis Comments HEMOGLOBIN, GLYCOSYLATED Routine 10/22/2024 Type 2 diabetes mellitus without complication, without long-term current use of insulin ([facility]) DIABETIC RETINOPATHY EXAM (NEGATIVE)(SCAN ORDER) Routine 06/28/2024 MAMMOGRAM GENERIC (SCAN ORDER) 05/31/2024 HEPATITIS C ANTIBODY W/RFX TO HCV RNA Routine 11/21/2023 6:32 AM INTERACTIVE PROJECT MANAGER LIPID PANEL Routine 11/21/2023 6:32 AM INTERACTIVE PROJECT MANAGER COLONOSCOPY GENERIC (SCAN ORDER) 07/13/2022 from Last 3 Months or Most Recently Relevant to Health Maintenance Results * HEMOGLOBIN, GLYCOSYLATED (10/22/2024) HGB A1C 7.4 % [facility] 10/22/2024 Junie Hector CREDIT AND COLLECTIONS REPRESENTATIVE LABORATORY Final Result Performing Organization Address City/[facility]/ZIP Co de Phone Number [facility] [address] [place] [address], [place] * DIABETIC RETINOPATHY EXAM (NEGATIVE) (06/28/2024) [facility] Scanned SCANNING Final Resu lt Performing Organization Address City/[facility]/ZIP Co de Phone Number [facility] * MAMMOGRAM GENERIC (SCAN ORDER) (05/31/2024) Anatomical Region Laterality Modality Other 05/31/2024 [facility] Scanned SCANNING Final Resu lt * HEPATITIS C ANTIBODY W/RFX TO HCV RNA (11/21/2023 6:32 AM INTERACTIVE PROJECT MANAGER) HEPATITIS C AB NON-REACT LAMIN NON-REACT LAMIN [employer] [facility] Comment: HCV antibody was non-reactive. There is no laboratory evidence of HCV infection. In most cases, no further action is required. However, if recent HCV exposure is suspected, a test for HCV RNA (test code 10859) is suggested. For additional information please refer to http://education.[employer]/faq/XHR78u5 (This link is being provided for informational/ educational purposes only.) 11/21/2023 6:32 AM INTERACTIVE PROJECT MANAGER 11/21/2023 6:32 AM INTERACTIVE PROJECT MANAGER Narrative Resulting Agency Comment Performing Organization Information: Site ID: [id number] Name: [facility] Address: [place] [address] Director: Robert Epstein MD Junie JUARES LABORATORY Final Result [facility] [address] [address], * LIPID PANEL (11/21/2023 6:32 AM INTERACTIVE PROJECT MANAGER) CHOLESTEROL 172 <200 mg/dL [facility] HDL 55 > OR = 50 mg/dL [facility] TRIGLYCERIDES 98 <150 mg/dL [facility] LDL (CALCULATED) 98 mg/dL (calc) [facility] Comment: Reference range: <100 Desirable range <100 mg/dL for primary prevention; <70 mg/dL for patients with CHD or diabetic patients with > or = 2 CHD risk factors. LDL-C is now calculated using the Gerard-Elsie calculation, which is a validated novel method providing better accuracy than the Friedewald equation in the estimation of LDL-C. Gerard SS et al. NOREEN. 2013;310(19): 7430-4300 (http://education.Networker/faq/SVX506) CHOL/HDL RATIO 3.1 <5.0 (calc) [facility] NON HDL CHOLESTEROL 117 <130 mg/dL (calc) [facility] Comment: For patients with diabetes plus 1 major ASCVD risk factor, treating to a non-HDL-C goal of <100 mg/dL (LDL-C of <70 mg/dL) is considered a therapeutic option. 11/21/2023 6:32 AM INTERACTIVE PROJECT MANAGER 11/21/2023 6:32 AM INTERACTIVE PROJECT MANAGER Narrative Resulting Agency Comment Performing Organization Information: Site ID: [id number] Name: [facility] Address: [place] [address] Director: Robert Epstein MD Junie Kilzer CREDIT AND COLLECTIONS REPRESENTATIVE LABORATORY Final Result [facility] [address] [address] [place] [address], [place] * COLONOSCOPY GENERIC (07/13/2022) 07/13/2022 Narrative 07/13/2022 Ordered by an unspecified provider. us Documents Scanned SCANNING Final Result from Last 3 Months or Most Recently Relevant to Health Maintenance Insurance [employer] Care Teams Development And Planning Engineer Relationship Specialty Start Date End Date Junie Young FNP [address] [place] [phone] PCP - General Nurse Practitioner Family 06/24/22
--- OUTSIDE RECORDS SUMMARY | 2025-02-12 01:15 | XMS_ITS | Encounter Summary ---
Author Organization [facility] Address Formerly [facility] [place] [address] Care Team Providers Care Hand Shaker Name Role Phone Junie Young Primary Care Provider [phone] Encounter Details Date Type Department Care Team (Late st Contact Info) Description 06/28/2022 MyChart Message Enc [facility] Medical Group Family & Internal Medicine [id number] [place] [address] Junie Young FNP [address] [place], [place] [id number] Constipation Social History Tobacco Use Types Packs/Day Years Used Date Smoking Tobacco: Never Smokeless Tobacco: Never Alcohol Use Standard Drinks/Week Comments Never 0 (1 standard drink = 0.6 oz pur e alcohol) PHQ-2 Answer Date Recorded PHQ-2 Score - If the patient scores above 3, please move on to questions 3-9 1 06/24/2022 Comments No Sex and Gender Information Value Date Recorded Sex Assigned at Female 10/22/2024 8:07 AM HOSPITALITY HOUSEKEEPER Legal Sex Female 10:48 AM CDT Gender Identity Female 10/22/2024 8:07 AM HOSPITALITY HOUSEKEEPER Sexual Orientation Not on file COVID-19 Exposure Response Date Recorded In the last 10 days, have yo u been in contact with someone who was confirmed or suspected to have Coronavirus/COVID-19? No / Unsure 06/24/2022 3:21 PM CDT documented as of this encounter Plan of Treatment Upcoming Encounters Date Type Department Care Team (Late Contact Info) Description 04/16/2025 8:40 AM CDT Laboratory Only [facility] Family & Internal [address] [address] Junie Young FNP [address] [place] [address] 04/23/2025 8:00 AM CDT Office Visit [facility] Family & Internal [address] [address] Junie Young FNP [address] [place] [address] documented as of this encounter Visit Diagnoses Not on filedocumented in this encounter Additional Health Concerns Infection Onset Date Last Indicated Resolved Time COVID-19 Rule Out 09/18/2024 09/18/2024 09/18/2024 6:44 AM HOSPITALITY HOUSEKEEPER documented as of this encounter Care Teams Hand Shaker Relationship Specialty Start Date End Date Junie Young FNP [address] [place] [address] PCP - General Nurse Practitioner Family 06/24/22 documented as of this encounter
--- OUTSIDE RECORDS SUMMARY | 2025-02-12 01:15 | XMS_ITS | Encounter Summary ---
Author Organization [facility] Address Count includes the [facility] [place] [address] Care Team Providers Care Paint Roller Covers Supervisor Name Role Phone Junie Young Primary Care Provider [phone] Encounter Details Date Type Department Care Team (Late st Contact Info) Description 06/27/2022 MyChart Message Enc [facility] Medical Group Family & Internal Medicine [id number] [place] [address] Junie Young FNP [address] [place], [place] [id number] Constipation Social History Tobacco Use Types Packs/Day [...] Sex Assigned at Female 10/22/2024 8:07 AM FIRER BISQUE KILN Legal Sex Female 10:48 AM CDT Gender Identity Female 10/22/2024 8:07 AM FIRER BISQUE KILN Sexual Orientation Not on file COVID-19 Exposure Response Date Recorded In the last 10 days, have yo u been in contact with someone who was confirmed or suspected to have Coronavirus/COVID-19? No / Unsure 06/24/2022 3:21 PM CDT documented as of this encounter Plan of Treatment Upcoming Encounters Date Type Department Care Team (Late Contact Info) Description 04/16/2025 8:40 AM CDT Laboratory Only [facility] Family & Internal [address] [address] Junie Young FNP [address] [place] [address] 04/23/2025 8:00 AM CDT Office Visit [facility] Family & Internal [address] [address] Junie Young FNP [address] [place] [address] documented as of this encounter Visit Diagnoses Not on filedocumented in this encounter Additional Health Concerns Infection Onset Date Last Indicated Resolved Time COVID-19 Rule Out 09/18/2024 09/18/2024 09/18/2024 6:44 AM FIRER BISQUE KILN documented as of this encounter Care Teams Paint Roller Covers Supervisor Relationship Specialty Start Date End Date Junie Young FNP [address] [place] [id number] PCP - General Nurse Practitioner Family 06/24/22 documented as of this encounter
--- OUTSIDE RECORDS SUMMARY | 2025-02-12 01:15 | XMS_ITS | Encounter Summary ---
Author Organization [facility] Address [facility] [place] [address] Care Team Providers Care Resident Care Aid Name Role Phone Junie Young Primary Care Provider [phone] Encounter Details Date Type Department Care Team (Late st Contact Info) Description 07/07/2022 myTomorrowshart Message Enc [facility] Medical Group Family & Internal Medicine [phone] [place] [address] Junie Young FNP [address] [place], [place] [phone] Referral Social History Tobacco Use Types Packs/Day Years [...] Sex Assigned at Female 10/22/2024 8:07 AM LEAD TECHNICAL ARCHITECT Legal Sex Female 10:48 AM CDT Gender Identity Female 10/22/2024 8:07 AM LEAD TECHNICAL ARCHITECT Sexual Orientation Not on file COVID-19 Exposure Response Date Recorded In the last 10 days, have yo u been in contact with someone who was confirmed or suspected to have Coronavirus/COVID-19? No / Unsure 06/24/2022 3:21 PM CDT documented as of this encounter Plan of Treatment Upcoming Encounters Date Type Department Care Team (Late Contact Info) Description 04/16/2025 8:40 AM CDT Laboratory Only [facility] Family & Internal [address] [address] Junie Young FNP [address] [place] [address] 04/23/2025 8:00 AM CDT Office Visit [facility] Family & Internal [address] [address] Junie Young FNP [address] [place] [address] documented as of this encounter Visit Diagnoses Not on filedocumented in this encounter Additional Health Concerns Infection Onset Date Last Indicated Resolved Time COVID-19 Rule Out 09/18/2024 09/18/2024 09/18/2024 6:44 AM LEAD TECHNICAL ARCHITECT documented as of this encounter Care Teams Resident Care Aid Relationship Specialty Start Date End Date Junie Young FNP [address] [place] [address] PCP - General Nurse Practitioner Family 06/24/22 documented as of this encounter
--- OUTSIDE RECORDS SUMMARY | 2025-02-12 01:15 | XMS_ITS | Encounter Summary ---
Author Organization [facility] Address [facility] [place] [address] Care Team Providers Care Key Person Name Role Phone Junie Young Primary Care Provider [phone] Encounter Details Date Type Department Care Team (Late st Contact Info) Description 04/25/2023 MyCinfoBizzt Message Enc [facility] Medical Group Family & Internal Medicine [facility] [address] [place] [address] Junie Young FNP [address] [place], [place] [phone] Allergies Social History Tobacco Use Types Packs/Day Years Used Date Smoking Tobacco: Never Passive Smoke Exposure: Never Smokeless Tobacco: Never Alcohol Use Standard Drinks/Week Comments Never 0 (1 standard drink = 0.6 oz pur e alcohol) PHQ-2 Answer Date Recorded Patient Health Questionnaire-2 Score 0 04/11/2023 Comments No Sex and Gender Information Value Date Recorded Sex Assigned at Female 10/22/2024 8:07 AM ACCOUNTS PAYABLE REPRESENTATIVE Legal Sex Female 10:48 AM CDT Gender Identity Female 10/22/2024 8:07 AM ACCOUNTS PAYABLE REPRESENTATIVE Sexual Orientation Not on file documented as of this encounter Progress Notes * BLANQUITA Erazo - 04/27/2023 9:02 AM CDT We can send out amoxicillin 875 mg bid x 10d Flonase 2 sprays each nostril daily dsp 15.8 ml refill 1 documented in this encounter Plan of Treatment Upcoming Encounters Date Type Department Care Team (Late st Contact Info) Description 04/16/2025 8:40 AM CDT Laboratory Only [facility] Family & Internal Medicine [address] [address] Junie Young FNP [address] [place] [address] 04/23/2025 8:00 AM CDT Office Visit [facility] Family & Internal [address] [address] Junie Young FNP [address] [place] [address] documented as of this encounter Visit Diagnoses Not on filedocumented in this encounter Additional Health Concerns Infection Onset Date Last Indicated Resolved Time COVID-19 Rule Out 09/18/2024 09/18/2024 09/18/2024 6:44 AM ACCOUNTS PAYABLE REPRESENTATIVE documented as of this encounter Care Teams Key Person Relationship Specialty Start Date End Date Junie Young FNP [address] [place] [address] PCP - General Nurse Practitioner Family 06/24/22 documented as of this encounter
--- OUTSIDE RECORDS SUMMARY | 2025-02-12 01:15 | XMS_ITS | Encounter Summary ---
Author Organization [facility] Address [facility] [place] [address] Care Team Providers Care Home Care Nurse Name Role Phone Junie Young Primary Care Provider [phone] Encounter Details Date Type Department Care Team (Late st Contact Info) Description 03/01/2023 Given.tohart Message Enc [facility] Family & Internal [address] [address] Junie Young FNP [address] [place] [phone] Blood Pressure Social History Tobacco Use Types Packs/Day Years [...] Sex Assigned at Female 10/22/2024 8:07 AM RN MIDWIFE Legal Sex Female 10:48 AM CDT Gender Identity Female 10/22/2024 8:07 AM RN MIDWIFE Sexual Orientation Not on file documented as of this encounter Plan of Treatment Upcoming Encounters Date Type Department Care Team (Late st Contact Info) Description 04/16/2025 8:40 AM CDT Laboratory Only [facility] Family & Internal [address] [address] Junie Young FNP [address] [place] [address] 04/23/2025 8:00 AM CDT Office Visit [facility] Medical Group Family & Internal Medicine - [address] [address] Junie Young FNP [address] [place] [address] documented as of this encounter Visit Diagnoses Not on filedocumented in this encounter Additional Health Concerns Infection Onset Date Last Indicated Resolved Time COVID-19 Rule Out 09/18/2024 09/18/2024 09/18/2024 6:44 AM RN MIDWIFE documented as of this encounter Care Teams Home Care Nurse Relationship Specialty Start Date End Date Junie Young FNP [address] [place] [address] PCP - General Nurse Practitioner Family 06/24/22 documented as of this encounter
--- OUTSIDE RECORDS SUMMARY | 2025-02-12 01:15 | XMS_ITS | Encounter Summary ---
Author Organization [facility] Address [facility]ly [facility] [place] [address] Care Team Providers Care Photo Tube Assembler Name Role Phone Junie Young Primary Care Provider [phone] Encounter Details Date Type Department Care Team (Late st Contact Info) Description 06/30/2022 MuscleGenest Message Enc [facility] Medical Group Family & Internal Medicine [phone] [place] [address] Junie Young FNP [address] [place], [place] [phone] Diarrhea Social History Tobacco Use Types Packs/Day Years [...] Sex Assigned at Female 10/22/2024 8:07 AM DECORATING AND ASSEMBLY SUPERVISOR Legal Sex Female 10:48 AM CDT Gender Identity Female 10/22/2024 8:07 AM DECORATING AND ASSEMBLY SUPERVISOR Sexual Orientation Not on file COVID-19 Exposure Response Date Recorded In the last 10 days, have yo u been in contact with someone who was confirmed or suspected to have Coronavirus/COVID-19? No / Unsure 06/24/2022 3:21 PM CDT documented as of this encounter Progress Notes * BLANQUITA Erazo - 06/30/2022 8:50 AM CDT We can put in a GI referral. documented in this encounter Plan of Treatment Upcoming Encounters Date Type Department Care Team (Late st Contact Info) Description 04/16/2025 8:40 AM CDT Laboratory Only [facility] Family & Internal [address] [address] Junie Young FNP [address] [place] [address] 04/23/2025 8:00 AM CDT Office Visit [facility] Family & Internal [address] [address] Junie Young FNP [address] [place] [address] documented as of this encounter Visit Diagnoses Not on filedocumented in this encounter Additional Health Concerns Infection Onset Date Last Indicated Resolved Time COVID-19 Rule Out 09/18/2024 09/18/2024 09/18/2024 6:44 AM DECORATING AND ASSEMBLY SUPERVISOR documented as of this encounter Care Teams Photo Tube Assembler Relationship Specialty Start Date End Date Junie Young FNP [address] [place] [phone] PCP - General Nurse Practitioner Family 06/24/22 documented as of this encounter
--- OUTSIDE RECORDS SUMMARY | 2025-02-12 01:15 | XMS_ITS | Data Portability ---
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 We talked about treatment options today in detail I offered her a shot of cortisone in her knees however she declined she states she has had this done a couple of years ago into 1 knee which caused a very large spike in her blood sugar she is diabetic she states it took her several days to get her blood sugar back under control she would rather avoid steroids. We did talk about diclofenac she wanted to proceed we will get her set up with diclofenac 75 mg b.i.d. with food. The other option would be gel shots she did want to proceed with these we will get her set up for viscosupplementation injections both knees I will see her back when this is ready. Because of blood sugar issues and her elevated BMI she has not a great candidate for total knee arthroplasty. We will try to get by with conservative measures for now. She voiced understanding agrees above plan she will call for any further problems difficulties or questions. Not available 03/20/2024 16:06:01 04/16/2024 04/16/2024 The patient has moderately severe primary osteoarthritis both knee joints as described. At her request under sterile conditions I injected both knee joints in the office today with Euflexxa injection number 1 that she brings with her from the specialty pharmacy. She tolerated the procedures well. I will see her back next week for the 2nd injection both knees she voiced understanding agrees above plan she will call for any further problems difficulties or questions. Not available 04/16/2024 12:14:16 04/23/2024 04/23/2024 the patient has moderately severe primary osteoarthritis both knee joints. Under sterile conditions I injected both knee joints in the office today with Euflexxa injection number 2. She is doing very well after the 1st round. I will see her back next week for the last injection both knees she voiced understanding and agrees above plan she will call for any further problems difficulties or questions. Not available 04/23/2024 09:53:39 04/30/2024 04/30/2024 the patient has moderately severe primary osteoarthritis both knees at her request under sterile conditions I injected both knee joints in the office today with Euflexxa injection number 3 from the specialty pharmacy. The patient tolerated the procedure well. She is doing very well status post treatment we will see her back at the six-month daksha if necessary for repeat gel shots versus cortisone in between we will see how she does I will see her back as needed she voiced understanding and agrees above plan she will call for any further problems difficulties or questions. Not available 04/30/2024 10:00:08 Plan of Treatment Reminders Order Date Submit Date Provider Last Modified By Organization Details Last Modified Time Details Appointments None recorded. Lab None recorded. Referral None recorded. Procedures injection/a spiration joint/bursa (PROC) - in office procedure, administere d by provider 2023 024 [email or web address] In-Office Order, Internal Use Only DO Not Attach Compendium DO Not Attach Compendium, Do Not Delete/merge, [id number] 09:36:25 injection/a spiration joint/bursa (PROC) - in office procedure, administere d by provider 2023 024 [email or web address] In-Office Order, Internal Use Only DO Not Attach Compendium DO Not Attach Compendium, Do Not Delete/merge, [id number] 09:34:41 knee aspiration/ injection (PROC) 2023 024 [email or web address] In-Office Order, Internal Use Only DO Not Attach Compendium DO Not Attach Compendium, Do Not Delete/merge, [id number] 11:40:57 Surgeries None recorded. Imaging XR, knee 2023 024 [email or web address] [facility], [address], [place], [address], 4 16:15:20 Medication Orders diclofenac sodium 75 mg tablet,orlin yed release 2023 024 [email or web address] [facility] [id number], [address], 4 16:15:20 Tresiba FlexTouch U-200 insulin 200 unit/mL (3 mL) subcutaneou s pen 2022 023 RAMO [facility] [address], [address], 3 11:13:46 glimepiride 2 mg tablet 2022 023 RAMO [facility] [address], [address], 3 11:13:46 metformin ER 500 mg tablet,exte nded release 24 hr 2022 023 RAMO [facility] [address], [address], 3 11:13:45 Ozempic 2 mg/dose (8 mg/3 mL) subcutaneou s pen injector 2022 023 [email or web address] [facility] [address], [address], 3 11:21:39 rosuvastati n 5 mg tablet 2022 023 RAMO [facility], [address] [place], [address], 3 11:15:28 Patient TargetsNo targets recorded. Patient Instructions Encounter Date Encounter Id Patient Instructions Last Modified By Organization Details Last Modified Time 03/20/2024 [id number] viscosupplementa tion treatment* Not available 03/22/2024 15:47:21 Reason for Referral None Reported. Results Created Date Observation Date Name Description Value Unit Range Abnormal Flag Note LastModifiedBy Organization Detail LastModifiedTime 03/20/20 24 XR, knee No observ ation record ed. [email or web address] [facility] [address], [place], [address], 03/20/2024 16:07:48 Result Notes None recorded. Problems Name Problem SNOMED Code Status Onset Date Resolution Date Notes Provider Name and Address Organization Details Recorded Time Acquired trigger finger 8518095 Active Not Available [facility] 3 00:59:47 Serum creatinine above reference range 103471111 Active 2021 Not Available [facility] 3 00:59:47 Pain of left hip joint 4427732309397 00 Active 2021 Not Available [facility] 3 00:59:47 Vitamin D deficiency 58991042 Active 2021 Not Available [facility] 3 00:59:47 Dyslipidem ia 977966810 Active 2021 Not Available [facility] 3 00:59:47 Uncontroll ed type 2 diabetes mellitus 419330929 Active 2021 Not Available [facility] 3 00:59:48 Weight gain 4189953 Active 2022 Jany Waddell MD [address] [facility], [place], [address] , [facility] [place] [facility] 3 17:22:45 Essential hypertensi on 06158121 Active 2022 Jany Waddell MD [address] [facility], [facility] [address], [place], [address] , [facility] GROUP [facility] 3 17:24:37 Well controlled type 2 diabetes mellitus 956961987 Active 2022 Jany Waddell MD [address] [facility], [facility] [address], [place], [address] , [facility] 3 11:12:24 Pain of bilateral knee joints 7053884825817 04 Active 2023 JUAN R Irizarry, [facility] Info [facility] 4 15:35:35 Bilateral osteoarthr itis of knees 5989932878674 07 Active 2023 Clarissa Kelley [place], [place] [employer] [facility] [employer] [facility] 4 15:58:44 Problem Notes None recorded. Procedures Surgical History Date Name Laterality Status Provider Name and Address Organization Details Recorded Time Hernia Repair completed Theresa Taylor CNA [place] [employer] [facility] Info [facility] 03/20/2024 15:34:57 Imaging Results Imaging Date Name Status LastModified by Organiz ation Details LastModified Time 03/20/2024 XR, knee completed [email or web address] [facility] [address], [place], [address], 03/20/2024 16:07:48 Procedure Notes None recorded. Medical Equipment None Reported. Allergies No known drug allergies Medications Name Sig Start Date Stop Date Status Note LastModified by Organization Details LastModified Time losartan 50 mg tablet TAKE 1 TABLET BY MOUTH EVERY MORNING active Not Available Not Available No t Available cyclobenzap rine 10 mg tablet active Not Available Not Available Not Available amoxicillin 500 mg capsule 12/03 completed Not Available Not Available Not Available azithromyci n 250 mg tablet TAKE 2 TABLETS BY MOUTH TODAY, THEN TAKE 1 TABLET DAILY FOR 4 DAYS 02/15 completed Not Available Not Available Not Available fluconazole 150 mg tablet active Not Available Not Available Not Available hydrocodone 5 mg-acetamin ophen 325 mg tablet TAKE 1-2 TABLETS BY MOUTH EVERY 4-6 HOURS NEEDED FOR PAIN 03/20 completed Not Available Not Available Not Available meloxicam 15 mg tablet TAKE 1 TABLET BY MOUTH EVERY DAY WITH A MEAL 08/10 completed Not Available Not Available Not Available prednisone 20 mg tablet TAKE 2 TABLETS BY MOUTH EVERY DAY FOR 5 DAYS 03/20 completed Not Available Not Available Not Available metronidazo le 500 mg tablet TAKE 1 TABLET BY MOUTH 3 TIMES DAILY 08/10 completed Not Available Not Available Not Available ciprofloxac in 500 mg tablet TAKE 1 TABLET BY MOUTH TWICE A DAY 08/10 completed Not Available Not Available Not Available glimepiride 2 mg tablet TAKE 2 TABLETS BY MOUTH TWICE DAILY BEFORE MEALS active Not Available Not Available No t Available meloxicam 7.5 mg tablet active Not Available Not Available Not Available Guaiatussin AC 10 mg-100 mg/5 mL oral liquid 12/03 completed Not Available Not Available Not Available amoxicillin 875 mg tablet TAKE 1 TABLET BY MOUTH TWICE A DAY FOR 10 DAYS 03/20 completed Not Available Not Available Not Available Kenalog 10 mg/mL suspension for injection In office injection administe red by the provider 12/03 completed [facility]: 0003- 0494- 20 Not Available Not Available Not Available dexamethaso ne 1 mg tablet TAKE 1 TABLET BY MOUTH AT 10 PM NIGHT BEFORE 8 AM CORTISOL 05/09 completed Not Available Not Available Not Available amlodipine 10 mg tablet TAKE 1 TABLET BY MOUTH EVERY DAY active Not Available Not Available No t Available benzonatate 100 mg capsule 12/03 completed Not Available Not Available Not Available naproxen sodium 550 mg tablet active Not Available Not Available No t Available metformin 1,000 mg tablet active Not Available Not Available Not Available losartan 25 mg tablet TAKE 1 TABLET BY MOUTH EVERY DAY IN THE MORNING 05/09 completed Not Available Not Available Not Available diclofenac sodium 75 mg tablet,orlin yed release TAKE 1 TABLET BY MOUTH TWICE A DAY 2024 active Not Available Not Available Not Avai lable furosemide 20 mg tablet TAKE 1 TABLET BY MOUTH EVERY DAY IN THE MORNING active Not Available Not Available No t Available ergocalcife rol (vitamin D2) 1,250 mcg (50,000 unit) capsule TAKE 1 CAPSULE BY MOUTH EVERY WEEK IN THE MORNING FOR 90 DAYS. active Not Available Not Available No t Available levofloxaci n 500 mg tablet 12/03 completed Not Available Not Available Not Available methylpredn isolone 4 mg tablets in a dose pack 12/03 completed Not Available Not Available Not Available fluticasone propionate 50 mcg/actuati on nasal spray,suspe nsion SPRAY 2 SPRAYS INTO EACH NOSTRIL EVERY DAY active Not Available Not Available No t Available metformin ER 500 mg tablet,exte nded release 24 hr TAKE 1 TABLET BY MOUTH TWICE A DAY active Not Available Not Available No t Available Ventolin HFA 90 mcg/actuati on aerosol inhaler active Not Available Not Available Not Available Novolog FlexPen U-100 Insulin aspart 100 unit/mL (3 mL) subcutaneou s 07/02 completed Not Available Not Available Not Available rosuvastati n 5 mg tablet TAKE 1 TABLET BY MOUTH EVERY DAY active Not Available Not Available No t Available Euflexxa 10 mg/mL (mw 2.4-3.6 million) intra-artic ular syringe Inject 2 mL by intra-art icular route as directed for 21 days, for bilateral knee osteoarth ritis. active Not Available Not Available No t Available metformin 12/03 completed Not Available Not Available Not Available lidocaine (PF) 10 mg/mL (1 %) injection solution In office injection administe red by the provider 12/03 completed [facility]: 0409- 4276- 17 Not Available Not Available Not Available BD Ultra-Fine Short Pen Needle 31 gauge x 5/16 USE TO INJECT INSULIN DAILY active Not Available Not Available No t Available BD Ultra-Fine Original Pen Needle 29 gauge x 1/2 INJECT WITH INSULIN AND OZEMPIC X 90 DAYS active Not Available Not Available No t Available Januvia 100 mg tablet 05/08 completed Not Available Not Available Not Available Januvia 12/03 completed Not Available Not Available Not Available Lantus Solostar U-100 Insulin 100 unit/mL (3 mL) subcutaneou s pen 07/02 completed Not Available Not Available Not Available Lantus Solostar U-100 Insulin 05/08 completed Not Available Not Available Not Available BD Ultra-Fine Cristina Pen Needle 32 gauge x 5/32 active Not Available Not Available Not Available Tresiba FlexTouch U-200 insulin 200 unit/mL (3 mL) subcutaneou s pen INJECT 50 UNITS UNDER THE SKIN EVERY DAY AT BEDTIME active Not Available Not Available No t Available Bydureon BCise 2 mg/0.85 mL subcutaneou s auto-inject or Inject 2 mg every week by subcutane ous route at dinner for 90 days. active Not Available Not Available No t Available Ozempic 0.25 mg or 0.5 mg (2 mg/1.5 mL) subcutaneou s pen injector INJECT 0.5 MG ONCE WEEKLY WITH A MEAL active Not Available Not Available No t Available Rybelsus 14 mg tablet TAKE 1 TABLET BY MOUTH DAILY active Not Available Not Available No t Available Ozempic 1 mg/dose (4 mg/3 mL) subcutaneou s pen injector INJECT 1 MG UNDER THE SKIN EVERY WEEK AT DINNER FOR 90 DAYS. 02/15 completed Not Available Not Available Not Available Ozempic 2 mg/dose (8 mg/3 mL) subcutaneou s pen injector INJECT 2 MG EVERY WEEK BY SUBCUTANE OUS ROUTE AT DINNER FOR 84 DAYS. active Not Available Not Available No t Available FreeStyle Lidia 3 Sensor device 03/20 completed Not Available Not Available Not Available Vitals Date Recorded Body height Body mass index (BMI) Body weight Provider Name and Address Organization Details Last Updated DateTime 05/09/2023 157.48 cm 41.3 kg/m2 191874.88 g Dotty Guillermo [facility] 05/09/2023 10:55:05 Date Recorded Systolic blood pressure Diastolic blood pressure Provider Name and Address Organization Details Last Updated DateTime 05/09/2023 130 mm[Hg] 76 mm[Hg] Penny Martinez RN [facility] 05/09/2023 10:58:30 Date Recorded Body height Body mass index (BMI) Body weight Provider Name and Address Organization Details Last Updated DateTime 03/20/2024 154.94 cm 39.9 kg/m2 33988.99 g Theresa Taylor CNA [facility] 03/20/2024 15:33:17 Date Recorded Body height Body mass index (BMI) Body weight Provider Name and Address Organization Details Last Updated DateTime 04/16/2024 154.94 cm 40.1 kg/m2 [address]3955.[address] [facility] 04/16/2024 11:39:54 Date Recorded Body height Body mass index (BMI) Body weight Provider Name and Address Organization Details Last Updated DateTime 04/23/2024 152.4 cm 41.2 kg/m2 01330.99 g JUAN R Irizarry [facility] [employer] [facility] 04/23/2024 09:34:10 Date Recorded Body height Body mass index (BMI) Body weight Provider Name and Address Organization Details Last Updated DateTime 04/30/2024 152.4 cm 41.2 kg/m2 15664.99 lelia Taylor CNA [place] [facility] [place] [employer] [facility] 04/30/2024 09:35:53 Social History Question Answer Notes LastModified by [employer] Details LastModified Time Tobacco Smoking Status Never Smoker Not Available [facility] 12/01/2022 00:47:21 What Is Your Level Of Caffeine Consumption? Moderate [id number] Information not available 12/01/2022 In The 14 Days Before Symptom Onset, Have You Had Close Contact With A Laboratory-confirm ed COVID-19 While That Case Was Ill? No [id number] Information not available 12/01/2022 In The 14 Days Before Symptom Onset, Have You Had Close Contact With A Person Who Is Under Investigation For COVID-19 While That Person Was Ill? No [id number] Information not available 12/01/2022 What Type Of Diet Are You Following? REGULAR [id number] Information not available 12/01/2022 What Was The Date Of Your Most Recent Tobacco Screening? 12/03/2020 [id number] Information not available 12/01/2022 What Is Your Relationship Status? Single [id number] Information not available 12/01/2022 Have You Recently Traveled Abroad? No [id number] Information not available 12/01/2022 Do You Have Any Dietary Restrictions? No [id number] Information not available 12/01/2022 Sex: Female Functional Status Question Answer Note LastModified by [employer] Details LastModified Time Do you use any illicit or recreational drugs? No [id number] 26 Information not available 12/01/2022 What is your level of alcohol consumption? None [id number] 26 Information not available 12/01/2022 What is your occupation? Teacher [id number] 26 Information not available 12/01/2022 Mental Status None recorded. Family History Relationship Description Onset Age of this Age Resolved Age Notes LastModified by Organization Details LastModified Time Unspecified Relation Heart disease [id number] Not available 12/01/2022 00:49:02 Mother Family history of malignant neoplasm [id number] Not available 12/01/2022 00:49:02 Mother Hypertensive disorder [id number] Not available 12/01/2022 00:49:02 Mother Diabetes mellitus [id number] Not available 12/01/2022 00:49:02 Brother Diabetes mellitus multip le brothe rs Not available 03/20/2024 15:34:24 Brother Family history of stroke [email or web address] Not available 2023 15:34:42 Maternal Aunt Family history of stroke [email or web address] Not available 2023 15:34:42 Medical History Condition Response DIABETES, TYPE Y HYPERTENSION Y Gynecological HistoryNo gynecological history recorded. Obstetrics History GPAL:G 0 P 0 0 0 0 Past Encounters Encounter ID Performer Location Encounter Start Date Encounter Closed Date Diagnosis/Indication Diagnosis SNOMED-CT Code Diagnosis ICD10 Code Diagnosis Note [id number] Kwan Ledesma MD [facility] [address] [place] [address] 12/03/2020 00:00:00 12/03/2020 17:09:23 [id number] Jany Waddell MD [facility] [address] [place] [address] 05/08/2021 00:00:00 05/08/2021 18:10:35 [id number] Jany Waddell MD _ZULEYMA IGRATION_ DEFAULT_1 _1 , 07/02/2021 00:00:00 07/02/2021 18:06:09 [id number] [facility] _ZULEYMA IGRATION_ DEFAULT_1 _1 , 10/29/2021 00:00:00 10/29/2021 17:59:14 [id number] Jany Waddell MD _ATHENA_M IGRATION_ DEFAULT_1 _1 , 12/31/2021 00:00:00 12/31/2021 10:25:55 [id number] Jany Waddell MD [facility] [address] [place] [address] 04/26/2022 00:00:00 04/26/2022 18:13:17 [id number] Kobi Ko MD [facility] [address] [place] [address] 08/10/2022 00:00:00 08/10/2022 09:49:53 [id number] [facility] [address] [place] [address] 09/16/2022 00:00:00 09/16/2022 17:51:23 [id number] Jany Waddell MD [facility] [address] [place] [address] 02/15/2023 16:54:14 02/15/2023 17:32:44 Uncontrolled type 2 diabetes mellitus 105717821 E11.65 a1c of 7.6% continue on tresiba 50 units at bedtime and patient aware to increase or decrease by 4 units every 4 days to maintain fasting glucose 90-130 mg/dL. continue ozempic 2 mg once weekly, along with glimepirid e scale and metformin for insulin sensitizat ion. Discussed carb counting and how to read food labels. Recommende d patient to utilize the diabetesfo [employer] from the ADA website to help with food preparatio n as this presents ideal carb content per meal so this will make carb counting much easier for patient. Recommende d she incorporat e natural insulin business education instructor s such as pears, apples, cinnamon, olegario and sweet potatoes to help mobilize her endogenous insulin. Recommende d up to 150 minutes of moderate level activity/e xercise weekly. Will send for low dose dexa suppressio n testing to screen for hypercorti solic state. Weight gain 7940989 R63. 5 Will send for low dose dexa suppressio n testing to screen for hypercorti solic state due to hypertensi on and weight gain/insul in resistance . Dyslipidemia 645100727 E 78.5 continue on statin therapy. Essential hypertension 61498329 I10 will trial on losartan 25 mg daily. BP is not in ideal range. Spent up to 28 minutes preparing to see the patient (eg, review of tests), obtaining and/or reviewing separately obtained history, performing a medically appropriat e examinatio n and evaluation , counseling and educating the patient, ordering medication s, tests, along with documentin g clinical informatio n in the electronic health record, independen tly interpreti ng results and communicat ing results to the patient. RTC in 3-4 months. Patient was provided a handwritte n lab order which contains our fax number. If she chooses to go outside of the [facility] system to obtain labwork she was advised to provide our fax number and my informatio n to the lab she will be obtaining labwork from in order to have her labs properly forwarded over for me to review so there is no loss of follow up due to use of outside network. She was also advised to contact our clinic informing us that she has completed her labwork so we are aware we will need to reach out to the appropriat e laboratory to request her results be forwarded to us so I might have the ability to review and make further medical decision making in her case. She voiced understand ing. [id number] Jany Waddell MD [facility] [address] [place] [address] 05/09/2023 10:40:34 05/09/2023 11:36:38 Well controlled type 2 diabetes mellitus 929082377 E11.9 a1c 7.2% stable- continue on tresiba 50 units at bedtime and patient aware to increase or decrease by 4 units every 4 days to maintain fasting glucose 90-130 mg/dL.cont inue ozempic 2 mg once weekly, along with glimepirid e scale and metformin for insulin sensitizat ion. provided freestyle lidia 3 sensor samples- she is compliant and wishes to use CGM technology to test glucose as she tests three times daily and on insulin therapy. Dyslipidemia 707012126 E 78.5 continue on statin therapy. Spent up to 25 minutes preparing to see the patient (eg, review of tests), obtaining and/or reviewing separately obtained history, performing a medically appropriat e examinatio n and evaluation , counseling and educating the patient, ordering medication s, tests, along with documentin g clinical informatio n in the electronic health record, independen tly interpreti ng results and communicat ing results to the patient. Patient can be followed by PCP - she/he is aware of my resignatio n and last day of July 15. If needed his/her PCP can refer patient to another endocrinol ogist in the area. All questions /concerns answered and refills necessary at visit today. [id number] Trent Rodriguez MD [facility] [address] [place] [address] 03/20/2024 15:18:53 03/20/2024 16:00:28 Pain of bilateral knee joints 4480013076 87226 M25.561 M25.562 Bilateral osteoarthritis of knees 1761048941 54507 M17.0 [id number] Trent Rodriguez MD [facility] [address] [place] [address] 04/16/2024 11:36:20 04/16/2024 11:46:02 Bilateral osteoarthritis of knees 8861436684 55061 M17.0 Pain of bi lateral knee joints 4656800858 95808 M25.561 M25.594 [id number] Trent Rodriguez MD [facility] [address] [place] [address] 04/23/2024 09:23:43 04/23/2024 10:08:04 Bilateral osteoarthritis of knees 8427065051 56381 M17.0 Pain of bi lateral knee joints [id number] M25.561 M25.674 [id number] Trent Rodriguez MD [facility] [place] [address] [place] [address] 04/30/2024 09:33:01 04/30/2024 10:20:17 Bilateral osteoarthritis of knees [id number] M17.0 Pain of bi lateral knee joints [id number] M25.561 M25.562 Health Concerns Section Related Observation LastModified by Organization Detai ls LastModified Time None Recorded Concern Status LastModified by Organization Details LastModified Time None Recorded Advance Directives Directive None Recorded Payers Encounter Date Sequence Insurance Name Policy Number Policy Navarrete Covered Member ID Navarrete Member ID Guarantor Name 05/09/2023 1 [place] [id number] Megha D Pangburn [id number] Megha D Mihaela 05/09/2023 2 [place] [id number] Megha D Mihaela [id number] Megha D Pangburn 03/20/2024 1 [place]) [id number] Megha D Mihaela [id number] Megha D Pangburn 03/20/2024 2 [place] [id number] Megha D Mihaela [id number] Megha D Mihaela 04/16/2024 1 [place] [id number] Megha D Pangburn [id number] Megha D Pangburn 04/16/2024 2 [place] [id number] Megha D Pangburn [id number] Megha D Mihaela 04/23/2024 1 [place] [id number] Megha D Pangburn [id number] Megha D Pangburn 04/23/2024 2 [place] [id number] Megha D Mihaela [id number] Megha D Mihaela 04/30/2024 1 [place] [id number] Megha D Pangburn [id number] Megha D Pangburn 04/30/2024 2 [place] [id number] Megha D Mihaela [id number] Megha D Pangburn Notes Date Note Type Note Provider Name and Address Organization Details Recorded Time 05/09/2023 text/html 62 yo female com es in for follow up in management of overall controlled type 2 DM (A1C if 7.2%), dyslipidemia last seen in January at that time we had patient continue on tresiba 50 units at bedtime and patient aware to increase or decrease by 4 units every 4 days to maintain fasting glucose 90-130 mg/dL.continue ozempic 2 mg once weekly, along with glimepiride scale and metformin for insulin sensitization. we sent her for DST which was normal we continued statin therapy Sugars are running under 140 mg/dL fastingno hypoglycemiararely over 200 mg/dl tests up to three times daily before meals. labs from January 2023:a1c 7.2%TSH of 0.65 uIU/mlFT4 of 1.1 ng/dL DST normal from Januaryortisol of 0.9 ug/dL Jany Waddell MD [address], [place], [address], [facility] 05/09/2023 11:23:01 03/20/2024 text/html The patient is a 63-year-old female who presents with bilateral knee pain. She has had chronic issues with both knees states she has done lots of standing and walking in her career. Lately her pain has been getting more significant and persistent. She will get aching pain that limits her daily activities she notes crepitation through the arc of motion particularly squatting kneeling going up and down stairs which is quite difficult for her. Most of the pain is localized to the medial and patellofemoral compartments. She has taken diclofenac previously about a year ago for her hip pain but has not taken anything for at least 7 months or so. She has tried to modify her activity a bit however her symptoms continue to be persistent and aggravating. She can not stand or walk for long periods. She denies any effusion or swelling no locking or catching and has not had any injury or trauma to either knee. Patient comes in today for initial evaluation treatment of bilateral knee pain as described. A new past medical history sheet was reviewed and signed on the intake sheet of today's date drug allergies current medications family social history previous surgical history 10 point review of systems was reviewed and discussed in detail today with the patient. ADOLPH Mcdonald [address], [place], [address], [facility] 03/20/2024 16:09:21 04/16/2024 text/html the patient retu rns for Euflexxa injection number 1 both knees that she brings with her from the specialty pharmacy. She has had chronic issues with both knees with aching pain and crepitation she is moderately severe primary osteoarthritis both knees noted on x-ray with narrowing in the medial and patellofemoral compartments and small marginal osteophytes. She has not yet become cfuk-te-ssue. She is tried cortisone previously, this gave her some relief she would like to try gel shots this time. She states cortisone did cause some elevation of her blood sugar so she would like to avoid this. She comes in today for the 1st round of injections both knees. ADOLPH Mcdonald [address], [address], [place], [address], [facility] 04/16/2024 12:14:43 04/23/2024 text/html the patient retu rns for Euflexxa injection number to both knees. The patient is already getting great relief from the 1st round of injections today she states she really does not have any pain she has had a nice result so far. She has moderately severe primary osteoarthritis both knees with narrowing of the medial and patellofemoral compartments with small marginal osteophytes. Cortisone previously has not given her the good relief she was looking for the gel shots appeared to be working better. Cortisone also elevates her blood sugar so she is quite pleased that the gel shots are working. ADOLPH Mcdonald [address], [place], [address], [facility] 04/23/2024 09:53:57 04/30/2024 text/html Patient returns for Euflexxa injection number 3 both knees she brings her medication from the specialty pharmacy. She is getting excellent relief from the 1st 2 rounds of injections. She does have moderately severe primary osteoarthritis both knees with narrowing in the medial and patellofemoral compartments and small marginal osteophytes. Denies any pain today states it is at a 0 on a scale of 1-10 she is quite pleased with the results so far. ADOLPH Mcdonald [address], [place], [address], [facility] 04/30/2024 10:00:19 OBGyn Episode No OBEpisode recorded.
--- OUTSIDE RECORDS SUMMARY | 2025-02-12 01:15 | XMS_ITS | Encounter Summary ---
Author Organization [facility] Address [facility] [place] [address] Care Team Providers Care Investigator Fraud Name Role Phone Juine Young Primary Care Provider [phone] Encounter Details Date Type Department Care Team (Late Contact Info) Description 07/02/2022 Sampahart Message Enc [facility] Medical Group Family & Internal Medicine [address] [place] [address] Junie Young FNP [address] [place], [place] [phone] Probiotics Social History Tobacco Use Types Packs/Day Years [...] Sex Assigned at Female 10/22/2024 8:07 AM HOSE INSPECTOR Legal Sex Female 10:48 AM CDT Gender Identity Female 10/22/2024 8:07 AM HOSE INSPECTOR Sexual Orientation Not on file COVID-19 Exposure Response Date Recorded In the last 10 days, have yo u been in contact with someone who was confirmed or suspected to have Coronavirus/COVID-19? No / Unsure 06/24/2022 3:21 PM CDT documented as of this encounter Plan of Treatment Upcoming Encounters Date Type Department Care Team (Late Contact Info) Description 04/16/2025 8:40 AM CDT Laboratory Only [facility] Family & Internal [address] [address] Junie Young FNP [address] [place] [address] 04/23/2025 8:00 AM CDT Office Visit [facility] Family & Internal [address] [address] Junie Young FNP [address] [place] [address] documented as of this encounter Visit Diagnoses Not on filedocumented in this encounter Additional Health Concerns Infection Onset Date Last Indicated Resolved Time COVID-19 Rule Out 09/18/2024 09/18/2024 09/18/2024 6:44 AM HOSE INSPECTOR documented as of this encounter Care Teams Investigator Fraud Relationship Specialty Start Date End Date Junie Young FNP [address] [place] [address] PCP - General Nurse Practitioner Family 06/24/22 documented as of this encounter
--- OUTSIDE RECORDS SUMMARY | 2025-02-12 01:15 | XMS_ITS | Encounter Summary ---
Author Organization [facility] Address [facility] [place] [address] Care Team Providers Care Protection Agent Name Role Phone Junie Young Primary Care Provider [phone] Encounter Details Date Type Department Care Team (Late st Contact Info) Description 01/07/2024 fitogramt Message Enc [facility] Medical Group Family & Internal Medicine [facility] [address] [place] [address] Junie Young FNP [address] [place], [place] [phone] Letter for Employer Social History Tobacco Use Types Packs/Day Years Used Date Smoking Tobacco: Never Passive Smoke Exposure: Never Smokeless Tobacco: Never Comments:None I don't use it . Alcohol Use Standard Drinks/Week Comments Never 0 (1 standard drink = 0.6 oz pur e alcohol) PHQ-2 Answer Date Recorded Patient Health Questionnaire-2 Score 1 10/17/2023 Comments No Sex and Gender Information Value Date Recorded Sex Assigned at Female 10/22/2024 8:07 AM BAR ROLLER Legal Sex Female 10:48 AM CDT Gender Identity Female 10/22/2024 8:07 AM BAR ROLLER Sexual Orientation Not on file documented as of this encounter Progress Notes * BLANQUITA Erazo - 01/09/2024 11:07 AM CDT Okay to write note documented in this encounter Plan of Treatment Upcoming Encounters Date Type Department Care Team (Late st Contact Info) Description 04/16/2025 8:40 AM CDT Laboratory Only [facility] Family & Internal Medicine [address] [address] Junie Young FNP [address] [place] [address] 04/23/2025 8:00 AM CDT Office Visit [facility] Family & Internal Medicine [address] [address] Junie Young FNP [address] [place] [address] documented as of this encounter Visit Diagnoses Not on filedocumented in this encounter Additional Health Concerns Infection Onset Date Last Indicated Resolved Time COVID-19 Rule Out 09/18/2024 09/18/2024 09/18/2024 6:44 AM BAR ROLLER Assessment Noted Time PHQ-9 Depression Total Score: 2 10/17/19 24 8:35 AM BAR ROLLER documented as of this encounter Care Teams Protection Agent Relationship Specialty Start Date End Date Junie Young FNP [address] [place] [address] PCP - General Nurse Practitioner Family 06/24/22 documented as of this encounter
--- OUTSIDE RECORDS SUMMARY | 2025-02-12 01:15 | XMS_ITS | Encounter Summary ---
Author Organization [facility] Address [facility] [place] [address] Care Team Providers Care Waste Disposal Attendant Name Role Phone Junie Young Primary Care Provider [phone] Encounter Details Date Type Department Care Team (Late st Contact Info) Description 07/05/2022 MyChart Message Enc [facility] Medical Group Family & Internal Medicine [facility] [address] [place] [address] Junie Young FNP [address] [place], [place] [phone] GI Referral Social History Tobacco Use Types Packs/Day [...] Sex Assigned at Female 10/22/2024 8:07 AM PIPE SUPERVISOR Legal Sex Female 10:48 AM CDT Gender Identity Female 10/22/2024 8:07 AM PIPE SUPERVISOR Sexual Orientation Not on file COVID-19 [...] 8:40 AM CDT Laboratory Only [facility] Family & Internal [address] [address] Junie Young FNP [address] [place] [address] 04/23/2025 8:00 AM CDT Office Visit [facility] Family & Internal [address] [address] Junie Young FNP [address] [place] [address] documented as of this encounter Visit Diagnoses Not on filedocumented in this encounter Additional Health Concerns Infection Onset Date Last Indicated Resolved Time COVID-19 Rule Out 09/18/2024 09/18/2024 09/18/2024 6:44 AM PIPE SUPERVISOR documented as of this encounter Care Teams Waste Disposal Attendant Relationship Specialty Start Date End Date Junie Young FNP [address] [place] [address] PCP - General Nurse Practitioner Family 06/24/22 documented as of this encounter
--- OUTSIDE RECORDS SUMMARY | 2025-02-12 01:15 | XMS_ITS | Encounter Summary ---
Author Organization [facility] Address [facility] [place] [address] Care Team Providers Care Store Lead Name Role Phone Junie Young Primary Care Provider [phone] Encounter Details Date Type Department Care Team (Late st Contact Info) Description 07/05/2022 ResiModelhart Message Enc [facility] Medical Group Family & Internal Medicine [facility] [address] [place] [address] Junie Young FNP [address] [place], [place] [phone] Probiotics and Fiber Social History Tobacco Use Types Packs/Day Years [...] Sex Assigned at Female 10/22/2024 8:07 AM VETERINARY POULTRY INSPECTOR Legal Sex Female 10:48 AM CDT Gender Identity Female 10/22/2024 8:07 AM VETERINARY POULTRY INSPECTOR Sexual Orientation Not on file COVID-19 [...] Description 04/16/2025 8:40 AM CDT Laboratory Only [facility] Family & Internal Medicine [address] [address] Junie Young FNP [address] [place] [address] 04/23/2025 8:00 AM CDT Office Visit [facility] Family & Internal [address] [address] Junie Young FNP [address] [place] [address] documented as of this encounter Visit Diagnoses Not on filedocumented in this encounter Additional Health Concerns Infection Onset Date Last Indicated Resolved Time COVID-19 Rule Out 09/18/2024 09/18/2024 09/18/2024 6:44 AM VETERINARY POULTRY INSPECTOR documented as of this encounter Care Teams Store Lead Relationship Specialty Start Date End Date Junie Young FNP [address] [place] [address] PCP - General Nurse Practitioner Family 06/24/22 documented as of this encounter
--- OUTSIDE RECORDS SUMMARY | 2025-02-12 01:15 | XMS_ITS | Encounter Summary ---
Author Organization [facility] Address [facility] [place] [address] Care Team Providers Care Non Destructive Evaluation Manager Name Role Phone Junie Young Primary Care Provider [phone] Encounter Details Date Type Department Care Team (Late st Contact Info) Description 09/30/2022 deeplocal Message Enc [facility] Medical Group Family & Internal Medicine [facility] [address] [place] [address] Junie Young FNP [address] [place], [place] [phone] Calf Pain Social History Tobacco Use Types Packs/Day Years [...] Sex Assigned at Female 10/22/2024 8:07 AM HIGH SCHOOL CHEMISTRY TEACHER Legal Sex Female 10:48 AM CDT Gender Identity Female 10/22/2024 8:07 AM HIGH SCHOOL CHEMISTRY TEACHER Sexual Orientation Not on file documented as of this encounter Progress Notes * BLANQUITA Erazo - 10/05/2022 9:31 AM CST Yes we should see her sometime this week SCHOOL CHEMISTRY TEACHER * BLANQUITA Erazo - 10/01/2022 3:27 PM CST She will need evaluation of this SCHOOL CHEMISTRY TEACHER documented in this encounter Plan of Treatment Upcoming Encounters Date Type Department Care Team (Late st Contact Info) Description 04/16/2025 8:40 AM CDT Laboratory Only [facility] Family & Internal [address] [address] Junie Young FNP [address] [place] [address] 04/23/2025 8:00 AM CDT Office Visit [facility] Internal [address] [address] Junie Young FNP [address] [place] [address] documented as of this encounter Visit Diagnoses Not on filedocumented in this encounter Additional Health Concerns Infection Onset Date Last Indicated Resolved Time COVID-19 Rule Out 09/18/2024 09/18/2024 09/18/2024 6:44 AM HIGH SCHOOL CHEMISTRY TEACHER documented as of this encounter Care Teams Non Destructive Evaluation Manager Relationship Specialty Start Date End Date Junie Young FNP [address] [place] [address] PCP - General Nurse Practitioner Family 06/24/22 documented as of this encounter
[2025-02-12 09:55] VITALS: BP 148/83; PULSE 91; RESP 18; TEMP 36.3; O2SAT 98; BMI 41.3
[2025-02-12] MEDS: LACTATED RINGERS 1,000 ML 150 ML IV CONT (10:05)
[2025-02-12 10:12] LABS: Glucose Point of Care 98 mg/dl (65-105)
--- NOTE | 2025-02-12 10:42 | P.PNAN_ITS ---
Anes - Initial Pre Proc Eval Procedure: Operation Date: 02/12/25 11:00 Proposed Procedures p Flexible Sigmoidoscopy - Junior Perez MD Date/Time: 02/12/25 10:42 Surgeon: Junior Perez MD Pre Op Diagnosis: Melena, Hemorrhoids, Diverticulosis Patient Data Age: 64 Gender: F Height: 1.55 m Weight: 99.1 kg Last Vital Signs Temp 36.3 C L 02/12/25 09:55 Pulse 91 02/12/25 09:55 Resp 18 02/12/25 09:55 BP 148/83 H 02/12/25 09:55 Pulse Ox 98 02/12/25 09:55 O2 Del Method Room Air 02/12/25 09:55 Allergies Allergy/AdvReac Type Severity Reaction Status Date / Time No Known Allergies Allergy Verified 02/12/25 09:53 Home Medications ?Medication ?Instructions ?Recorded ?Confirmed ?Type amlodipine 10 mg tablet (Norvasc) 10 mg PO DAILY 06/25/22 01/31/25 History ergocalciferol (vitamin D2) 1,250 1,250 mcg PO WEEKLY 06/25/22 01/31/25 History mcg (50,000 unit) capsule glimepiride 2 mg tablet 2 mg PO PRN PRN elevated blood 06/25/22 01/31/25 History sugar insulin degludec 200 unit/mL (3 50 unit subcut DAILY 06/25/22 01/31/25 History mL) subcutaneous pen (Tresiba FlexTouch U-200 insulin) metformin 500 mg tablet,extended 500 mg PO PRN PRN elevated blood 06/25/22 01/31/25 History release 24 hr sugar rosuvastatin 5 mg tablet 5 mg PO DAILY 06/25/22 01/31/25 History semaglutide 1 mg/dose (4 mg/3 mL) 1 mg subcut WEEKLY 06/25/22 01/31/25 History subcutaneous pen injector (Ozempic) diclofenac potassium 25 mg capsule 25 mg PO BID 09/06/24 01/31/25 History losartan 50 mg tablet 50 mg PO DAILY 09/06/24 01/31/25 History hydrocortisone acetate 25 mg 25 mg RECTAL DAILY PRN hemorrhoids 11/26/24 01/31/25 Rx rectal suppository (Anusol-HC) #12 ea sodium sul 1.479 gram-potas ch See Rx Instructions PO PER PKG DIR 12/05/24 01/31/25 Rx 0.188 gram-magnes sul 0.225 gram #24 tabs tablet (Sutab) Laboratory Tests 02/12/25 10:08 POC Capillary Glucose 98 mg/dl (65-105) Patient hx anesthesia problems: none Family hx anesthesia problems: none Results Review: All pre-operative results and documents have been reviewed as part of the pre- operative evaluation. PMFSH Past Medical History Medical History Internal hemorrhoids Diabetes Diverticulosis Surgical History Surgical History History of colonoscopy Family History Family History Other Diabetes mellitus Hypertension Social History Social History Smoking status: Never smoker Alcohol intake: never Substance use: never Substance use type: does not use Living arrangements: with family Spiritual care concerns: No Anes - Eval Final PreProcedure Day of Procedure 02/12/25 10:42 Patient weight: morbidly obese Heart: regular rate and rhythm Lungs: clear to auscultation Airway: Mallampati scale class III Neurological: alert and oriented Last oral intake: >/= 8 hours ASA classification: III Emergent: no Anesthetic plan: proceed Anesthesia type and monitoring: general GIVS and standard monitoring Results Review: All pre-operative results and documents have been reviewed as part of the pre- operative evaluation. Informed Consent: The patient's anesthetic plan and its attendant risks and benefits were discussed with the patient/family/POA. Questions were solicited and answers provided to the satisfaction of the patient/family/POA.
--- NOTE | 2025-02-12 10:43 | PM.HPGS ---
History of Present Illness History of Present Illness Consent: Risks, benefits, and alternatives have been discussed and questions answered. Patient agrees to proceed with procedure. Chief complaint: Melena, Hemorrhoids, Diverticulosis Narrative: Megha Chairez is a 64 year old female with intermittent rectal bleeding, last colonoscopy 2021 Review of Systems Review of Systems: All systems reviewed & are unremarkable except as noted in HPI and below PMFSH Past Medical History Medical History Internal hemorrhoids Diabetes Diverticulosis Surgical History Surgical History History of colonoscopy Family History Family History Other Diabetes mellitus Hypertension Social History Social History Smoking status: Never smoker Alcohol intake: never Substance use: never Substance use type: does not use Living arrangements: with family Spiritual care concerns: No Meds Home Medications and Allergies Home Medications ?Medication ?Instructions ?Recorded ?Confirmed ?Type amlodipine 10 mg tablet (Norvasc) 10 mg PO DAILY 06/25/22 01/31/25 History ergocalciferol (vitamin D2) 1,250 1,250 mcg PO WEEKLY 06/25/22 01/31/25 History mcg (50,000 unit) capsule glimepiride 2 mg tablet 2 mg PO PRN PRN elevated blood 06/25/22 01/31/25 History sugar insulin degludec 200 unit/mL (3 50 unit subcut DAILY 06/25/22 01/31/25 History mL) subcutaneous pen (Tresiba FlexTouch U-200 insulin) metformin 500 mg tablet,extended 500 mg PO PRN PRN elevated blood 06/25/22 01/31/25 History release 24 hr sugar rosuvastatin 5 mg tablet 5 mg PO DAILY 06/25/22 01/31/25 History semaglutide 1 mg/dose (4 mg/3 mL) 1 mg subcut WEEKLY 06/25/22 01/31/25 History subcutaneous pen injector (Ozempic) diclofenac potassium 25 mg capsule 25 mg PO BID 09/06/24 01/31/25 History losartan 50 mg tablet 50 mg PO DAILY 09/06/24 01/31/25 History hydrocortisone acetate 25 mg 25 mg RECTAL DAILY PRN hemorrhoids 11/26/24 01/31/25 Rx rectal suppository (Anusol-HC) #12 ea sodium sul 1.479 gram-potas ch See Rx Instructions PO PER PKG DIR 12/05/24 01/31/25 Rx 0.188 gram-magnes sul 0.225 gram #24 tabs tablet (Sutab) Allergies Allergy/AdvReac Type Severity Reaction Status Date / Time No Known Allergies Allergy Verified 02/12/25 09:53 Vital Signs Vital Signs - 24 hr 02/12/25 09:55 Temperature 97.4 F L Pulse Rate 91 Respiratory Rate 18 Blood Pressure 148/83 H Pulse Oximetry 98 Oxygen Delivery Room Air Exam Const: General: comfortable and no acute distress HENMT: Face/Nose/Sinus: Normal nares present Eyes: General: appearance normal, both eyes and all related structures Neck: Neck: no JVD Resp: Auscultation: clear to auscultation bilaterally Cardio: Rate: regular rate Rhythm: regular rhythm GI: Inspection: non-distended GI Palp: Yes Soft to palpation Skin: General skin exam: normal color Neuro: Speech: normal speech Extrem: General: normal to inspection Psych: Mental Status: mental status grossly normal Assessment and Plan Assessment and plan (1) Blood in stool: Code(s): K92.1 - Melena Status: Acute Assessment and Plan: sigmoidoscopy
[2025-02-12 10:52] VITALS: BP 114/70; PULSE 82; RESP 26; O2SAT 94
[2025-02-12 11:02] VITALS: BP 109/61; PULSE 79; RESP 25; O2SAT 95
[2025-02-12 11:12] VITALS: BP 112/44; PULSE 74; RESP 18; O2SAT 100
== END 2025-02-12 11:19 | disposition home or self-care (01) ==
PROVIDERS: PCP Nurse Practitioner Family; Referring Provider Nurse Practitioner Family; Visit Provider Internal Medicine Gastroenterology
PROC: 0DJD8ZZ Inspection of Lower Intestinal Tract, Via Natural or Artificial Opening Endoscopic (ICD-10-PCS; CPT 45330; principal; 2025-02-12 11:00)
DX: K64.8 Other hemorrhoids (principal); K57.30 Diverticulosis of large intestine without perforation or abscess without bleeding; E11.9 Type 2 diabetes mellitus without complications; E66.01 Morbid (severe) obesity due to excess calories; Z68.41 Body mass index [BMI] 40.0-44.9, adult; Z79.84 Long term (current) use of oral hypoglycemic drugs; Z79.4 Long term (current) use of insulin; Z79.85 Long-term (current) use of injectable non-insulin antidiabetic drugs; Z87.19 Personal history of other diseases of the digestive system
CPT/HCPCS: 45330; 82948; J2003; J2704; J7120